=== PATIENT | female | born 1955 | race Caucasian/White ===

== ENCOUNTER 2018-11-12 07:46 | Inpatient (IN) | payer BC ==
[2018-11-06 14:42] VITALS: BMI 32.9
[~2018-11-12 07:46] MED LIST: LACTATED RINGERS 1,000 ML IV SCH
[2018-11-12] MEDS ORDERED: LIDOCAINE 1% INJ 10MG/ML (20 ML MDV) ONE (08:29)
[2018-11-12] MEDS ORDERED: GLYCOPYRROLATE 0.2 MG/ML 2 ML VIAL ONE (08:29)
[2018-11-12] MEDS ORDERED: PROPOFOL 10 MG/ML 20 ML VIAL IV ONE (08:29)
--- NOTE | 2018-11-12 08:45 | P.GSHP ---
History of Present Illness H&P Date: 11/12/18 CHIEF COMPLAINT: GERD and colon screen HISTORY OF PRESENT ILLNESS: The patient is a 62-year-old female who presents with gastroesophageal reflux disease and need for colon screen. Upper and lower endoscopy were offered for further evaluation and management. PAST MEDICAL HISTORY: Please see list. PAST SURGICAL HISTORY: Please see list. MEDICATIONS: Please see list. ALLERGIES: Please see list. SOCIAL HISTORY: No illicit drug use FAMILY HISTORY: No reports of Crohn disease or ulcerative colitis. REVIEW OF ORGAN SYSTEMS: CONSTITUTIONAL: No reports of fevers or chills. GI: Denies any blood in stools or constipation. PHYSICAL EXAM: VITAL SIGNS: Stable GENERAL: Well-developed pleasant in no acute distress. HEENT: No scleral icterus. Extraocular movements grossly intact. Moist buccal mucosa. NECK: Supple without lymphadenopathy. CHEST: Unlabored respirations. Equal bilateral excursions. CARDIOVASCULAR: Regular rate and rhythm. Distal 2+ pulses. ABDOMEN: Soft, nondistended. MUSCULOSKELETAL: No clubbing, cyanosis, or edema. ASSESSMENT: 1. Gastroesophageal reflux disease 2. Colon screen. PLAN: 1. Recommend proceeding with an upper and lower endoscopy Past Medical History Past Medical History: Cancer, Hypertension Additional Past Medical History / Comment(s): anemic, skin cancer basal cell, maurice ahumada History of Any Multi-Drug Resistant Organisms: None Reported Past Surgical History: Hysterectomy, Tonsillectomy Additional Past Surgical History / Comment(s): basal cell skin cancer removed Past Anesthesia/Blood Transfusion Reactions: Previous Problems w/ Anesthesia Additional Past Anesthesia/Blood Transfusion Reaction / Comment(s): takes longer to come out of anesthesia Past Psychological History: No Psychological Hx Reported Smoking Status: Never smoker Past Alcohol Use History: Occasional Past Drug Use History: None Reported - Past Family History Mother Family Medical History: Deep Vein Thrombosis (DVT), Pulmonary Embolus Medications and Allergies Home Medications Medication Instructions Recorded Confirmed Type Ferrous Sulfate [Feosol] 325 mg PO DAILY 11/06/18 11/12/18 History Multivitamins, Thera [Multivitamin 1 tab PO DAILY 11/06/18 11/12/18 History (formulary)] Olmesartan Medoxomil [Benicar] 40 mg PO HS 11/06/18 11/12/18 History Allergies Allergy/AdvReac Type Severity Reaction Status Date / Time Penicillins Allergy Anaphylaxis Verified 11/12/18 08:07 Surgical - Exam Vital Signs Temp Pulse Resp BP Pulse Ox 97.8 F 89 17 143/69 96 11/12/18 08:08 11/12/18 08:08 11/12/18 08:08 11/12/18 08:08 11/12/18 08:08
--- NOTE | 2018-11-12 08:47 | P.PCN ---
Date of Procedure: 11/12/18 Condition: other Description of Procedure: PREOPERATIVE DIAGNOSIS: Gastroesophageal reflux disease. POSTOPERATIVE DIAGNOSIS: Duodenitis Gastric ulcers Gastritis Gastroesophageal reflux disease Diaphragmatic hiatal hernia OPERATION: Esophagogastroduodenoscopy with biopsies along antrum. SURGEON: Umm Ralph MD ANESTHESIA: MAC. INDICATIONS: The patient is a 62-year-old female who presents with a history of reflux disease. Benefits and risks of the procedure were described. Informed consent was obtained. DESCRIPTION: The patient was brought into the endoscopy suite and laid in the left lateral decubitus position. An Olympus gastroscope was passed along the posterior oropharynx down to the distal esophagus where the squamocolumnar junction was encountered at 30 cm from the incisors. The stomach was entered and no bile reflux was found. Additional findings are listed below. Biopsies with cold forceps were obtained of the antrum. The first through third portion of the duodenum was examined and remarkable for duodenitis. Retroflexion of the scope confirmed Hill grade 4 lower esophageal valve. The squamocolumnar junction demonstrated LA grade B erosive esophagitis. The stomach was desufflated. The patient tolerated the procedure well. FINDINGS: Squamocolumnar junction 30 cm from the incisors. Diaphragmatic hiatus at 38 cm. Hiatal hernia, 8 cm, sliding type, paraesophageal type III Hill grade 4 lower esophageal valve. LA grade B erosive esophagitis. Active duodenitis. Chronic gastritis RECOMMENDATIONS: Upper endoscopy as needed Recommend repair paraesophageal hiatal hernia
--- NOTE | 2018-11-12 09:16 | P.PCN ---
Date of Procedure: 11/12/18 Description of Procedure: PREOPERATIVE DIAGNOSIS: History of polyps History of complicated diverticulitis History of anemia POSTOPERATIVE DIAGNOSIS: History of polyps History of complicated diverticulitis History of anemia Large bowel obstruction Colonic neoplasm sigmoid colon OPERATION: Colonoscopy converted to flexible sigmoidoscopy to the sigmoid colon Flexible sigmoidoscopy with Cathryn ink tatto at 20 cm from the anal verge. Flexible sigmoidoscopy with cold biopsy forceps of obstructing sigmoid lesion SURGEON: Umm Ralph MD. ANESTHESIA: MAC. INDICATIONS: The patient is a 62-year-old female who presents with complicated diverticulitis with history of fistula. She also presents with history of anemia. Benefits and risks were described and informed consent was obtained. DESCRIPTION OF PROCEDURE: The patient had undergone bowel prep. She had been brought into the endoscopy room and laid in the left lateral decubitus position. After adequate intravenous sedation, the rectum was examined with 2% lidocaine jelly. No external hemorrhoids were encountered. The rectal tone was within normal limits. No lesions were palpated in the rectal vault. An Olympus colonoscope was advanced along the rectum to a near obstructing lesion at the sigmoid colon at 20 cm from the anal verge. An adult Olympus colonoscope was exchanged for a pediatric colonoscope. The lesion was circumferential, polypoid and without bleeding. Including, severe diverticulosis with narrowing was confirmed. Despite maneuvers, the pediatric colonoscope could not advance beyond the lesion. A cold forceps biopsy was performed to obtain specimen. Additionally, Cathryn ink tattoo 4-mL was placed just inferior and along the borders of the neoplasm to plan for resection. Internal hemorrhoids, grade 2 was found. The colonoscope was removed. Withdrawal time was over 6 minutes. FINDINGS: [place]ronchik preparation quality scale 2 (1-5) No external prolapsed hemorrhoids. Scope advanced to the sigmoid colon. Circumferential sigmoid neoplasm with near complete obstruction and at 20 cm from the anal verge. RECOMMENDATIONS: Recommend immediate CT of the abdomen and pelvis Will need immediate colectomy with possible colostomy Plan - Discharge Summary Discharge Rx Participant: No New Discharge Prescriptions: No Action Ferrous Sulfate [Feosol] 325 mg PO DAILY Multivitamins, Thera [Multivitamin (formulary)] 1 tab PO DAILY Olmesartan Medoxomil [Benicar] 40 mg PO HS Discharge Medication List Ferrous Sulfate [Feosol] 325 mg PO DAILY 11/06/18 [History] Multivitamins, Thera [Multivitamin (formulary)] 1 tab PO DAILY 11/06/18 [History] Olmesartan Medoxomil [Benicar] 40 mg PO HS 11/06/18 [History]
[2018-11-12] MEDS: IOPAMIDOL-300 CONTRAST 30 ML VIAL (ORAL USE) PO PRN ×2 (10:58→11:58)
--- NOTE | 2018-11-12 13:16 | CT ---
EXAMINATION TYPE: CT abdomen pelvis w con DATE OF EXAM: 11/12/2018 HISTORY: Abnormal colonoscopy, Diverticulitis CT DLP: 1403.3mGycm Automated Exposure Control for Dose Reduction was Utilized. CONTRAST: CT scan of the abdomen and pelvis is performed with IV Contrast, patient injected with 100 mL of Isov ue 300. COMPARISON: None. FINDINGS: LUNG BASES: No significant abnormality is appreciated. LIVER/GB: Hepatic parenchyma is diffusely hypoattenuated in comparison to that of the spleen, most co mmonly seen in hepatic steatosis. This finding limits evaluation for hepatic masses. No gross evidenc e of hepatic mass is seen. Wedge-shaped area of hypoattenuation more focally along the fissure for th e falciform ligament most commonly relates to focal fatty infiltration. No intrahepatic biliary ducta l dilatation. PANCREAS: No ductal dilatation. SPLEEN: No splenomegaly. ADRENALS: No nodularity or thickening. KIDNEYS: Kidneys enhance and excrete symmetrically without hydronephrosis. Punctate to small to accur ately characterize bilateral renal lesions measure only 2 mm and are too small to accurately characte rize. Extrarenal pelvises sees are seen bilaterally. BOWEL: There is a partial intrathoracic stomach with retained oral contrast resulting in surrounding atelectasis. There is also herniation of mesenteric fat and lymph nodes through the diaphragmatic hia tus. Nodular prominence along the greater curvature of the stomach on image 7 could relate to folding of the stomach upon itself. There are 2 nodular densities near the ampulla of Vater in the duodenum on series 201 image 33 and 34 as well as on 35 measuring 8 mm and 7 mm. These could represent small polyps, prominent duodenal fol ds, or periampullary mass although there is no ductal dilatation at this time of the main pancreatic duct. There is distention without nestor dilation of the proximal large colon involving the cecum, ascending colon, and transverse colon with transition point in the proximal descending colon on image 32. The remainder the colon distally is decompressed. There is tethering of loops of redundant sigmoid colon on image 70 into the mesentery. There are multiple prominent but nonenlarged lymph nodes just cranial to this on image 66 that are clustered. There is diffuse thickening of the sigmoid colon with surrou nding pericolonic fat stranding in a long segment measuring approximately 9.5 cm in length marked on image 73. Rectum is decompressed. No dilated small bowel is seen. There are multiple prominent right lower quadrant clustered lymph nodes measuring up to 7 mm. Other scattered nonenlarged mesenteric lym ph nodes are present. UTERUS/ADNEXA: Atrophic appearance of the uterus and ovaries. LYMPH NODES: No greater than 1cm abdominal or pelvic lymph nodes are appreciated. OSSEOUS STRUCTURES: Degenerative changes of the lumbosacral junction and to lesser degree throughout the remainder of the lumbar spine. Nonspecific sclerotic lesion of the right iliac bone measures 4 mm on image 73. Osseous structures are grossly intact. OTHER: Mild atherosclerosis of the abdominal aorta and its branches. IMPRESSION: 1. Diffuse sigmoid colonic wall thickening in a long segment measuring approximately 9.5 cm with surr ounding pericolonic fat stranding could represent the patient's known colonic mass. 2. There is tethering of the redundant sigmoid colon with colocolonic nondistended fistula remaining possibility. 3. Distended proximal colon with transition point in the proximal descending colon that could be on t he basis of colonic spasm. No abnormal dilation of the colon. 4. Multiple scattered nonenlarged mesenteric lymph nodes, none of which are greater than 1 cm. 5. Partial intrathoracic stomach with folding upon the stomach creating nodular appearance. 6. Hepatic steatosis, limiting evaluation for hepatic masses. 7. Nodular prominence multifocally near the ampulla of Vater and may relate to duodenal folds, polyps , or periampullary mass.
[2018-11-12] MEDS ORDERED: ACETAMINOPHEN TAB 325 MG TAB PO PRN (14:11)
[2018-11-12] MEDS ORDERED: NALOXONE 0.4 MG/ML 1 ML VIAL IV PRN (14:11)
[2018-11-12] MEDS ORDERED: TEMAZEPAM 15 MG CAP PO PRN (14:11)
[2018-11-12] MEDS ORDERED: MELATONIN 3 MG TABLET PO PRN (14:11)
[2018-11-12] MEDS: SODIUM CHLORIDE 0.9% 1,000 ML IV SCH (14:26)
[2018-11-12 15:42] LABS: Basophils % (A) 0 %; Eosinophils # (A) 0.1 k/uL (0-0.7); Eosinophils % (A) 0 %; HCT 36.9 % (34.0-46.0); HGB 12.6 gm/dL (11.4-16.0); Lymphocytes # (A) 1.5 k/uL (1.0-4.8); Lymphocytes % (A) 10 %; MCH 27.6 pg (25.0-35.0); MCHC 34.2 g/dL (31.0-37.0); MCV 80.8 fL (80.0-100.0); Mean Platelet Volume 6.7; Monocytes # (A) 0.7 k/uL (0-1.0); Monocytes % (A) 5 %; Neutrophils # (A) 12.9 k/uL (1.3-7.7); Neutrophils % (A) 84 %; Platelet Count 365 k/uL (150-450); RBC 4.56 m/uL (3.80-5.40); WBC 15.4 k/uL (3.8-10.6)
[2018-11-12 15:44] LABS: Prothrombin Time 10.6 sec (9.0-12.0)
[2018-11-12 15:56] LABS: ALT 21 U/L (9-52); AST 19 U/L (14-36); African American GFR (CKD) >90 (>60 ml/min/1.73 sqM); Albumin 4.4 g/dL (3.5-5.0); Alkaline Phosphatase 65 U/L (38-126); Anion Gap 10 mmol/L; Blood Urea Nitrogen 11 mg/dL (7-17); Calcium 9.6 mg/dL (8.4-10.2); Carbon Dioxide 30 mmol/L (22-30); Chloride 99 mmol/L (98-107); Glucose 88 mg/dL (74-99); Sodium 139 mmol/L (137-145); Total Bilirubin 0.6 mg/dL (0.2-1.3); Total Protein 7.4 g/dL (6.3-8.2)
[2018-11-12] MEDS ORDERED: SODIUM CHLORIDE 0.9% 2,000 ML IV ONE (21:04)
[2018-11-12] MEDS ORDERED: LOSARTAN 50 MG TAB PO SCH (21:15)
--- NOTE | 2018-11-12 21:15 | P.PN ---
Subjective Progress Note Date: 11/12/18 CHIEF COMPLAINT: Large bowel obstruction HISTORY OF PRESENT ILLNESS: The patient is a 62-year-old female who during colonoscopy has an obstructive lesion along the sigmoid colon. Neoplasm cannot be excluded. She has personal history of previous ruptured diverticulitis over 8-9 months ago. She denies any current abdominal pain other than cramping. No reports of recent fevers or chills. She has been passing flatus since her colonoscopy. She does have personal history of anemia. Upper endoscopy was also consistent with large hiatal hernia with bleeding ulcers. She reports no passage of stool in her urine. ROS: No reports of nausea and vomiting. No fevers or chills. No new chest pain. No productive sputum PHYSICAL EXAM: VITAL SIGNS: Reviewed CONSTITUTIONAL: Well developed and in no acute distress. EYES: Conjuctivae without sclera icterus. Extraocular movements grossly intact. HEAD, EARS, NOSE, THROAT: Moist buccal mucosa. Head is atraumatic, normocephalic. Hears conversational speech. No nasal drainage. NECK: Supple. No thyroidomegaly. RESPIRATORY: Non-labored respirations and equal bilateral excursions. CARDIOVASCULAR: Palpable 2+ radial pulses. ABDOMEN: Soft. . Mildly distended. Non-tender. MUSCULOSKELETAL: No gross deformity of the lower extremities noted. No clubbing. No cyanosis. SKIN: Good skin turgor. Well perfused. NEUROLOGIC: Cranial nerves I through XII grossly intact. No focal or lateralizing signs. PSYCH: Appropriate affect. Alert and oriented to person, place and time. CLINCAL LABS: Pending RADIOLOGY: CT of the abdomen and pelvis independently reviewed alongside with patient demonstrating long segment of sigmoid thickening. No free air. Moderately dilated colon. No metastatic lesions of the liver. REPORT: Over 7 cm thickening of the sigmoid colon possible colovesical fistula cannot be excluded. ASSESSMENT: 1. Sigmoid colon mass, neoplasm 2. Large bowel obstruction from obstructive sigmoid colon mass 3. Large paraesophageal hiatal hernia with bleeding 4. Hypertensive heart disease PLAN: 1. Full inpatient admission for large bowel obstruction requiring urgent sigmoid colon resection and possible colostomy creation 2. Recommend echo including EKG hypertensive heart disease 3. Recommend CBC, comp metabolic panel, coags, type and screen and iron panel for preop 4. Robotic-assisted approach described as she reports no previous abdominal surgeries 5. Cardiology consultation for cardiac risk assessment Objective - Vital Signs Vital signs: Vital Signs Temp 97.8 F 11/12/18 08:08 Pulse 80 11/12/18 11:11 Resp 18 11/12/18 11:11 BP 152/80 11/12/18 11:11 Pulse Ox 96 11/12/18 10:12 Intake & Output 11/11/18 11/12/18 11/12/18 18:59 06:59 18:59 Intake Total 700 Balance 700 Intake: IV 700 - Labs CBC & Chem 7: 11/12/18 14:50 11/12/18 14:50 Assessment and Plan (1) Diverticulitis large intestine w/o perforation or abscess w/o bleeding Current Visit: Yes Status: Acute Code(s): K57.32 - DVTRCLI OF LG INT W/O PERFORATION OR ABSCESS W/O BLEEDING SNOMED Code(s): 5385973 (2) Neoplasm of sigmoid colon Current Visit: Yes Status: Acute Code(s): D49.0 - NEOPLASM OF UNSPECIFIED BEHAVIOR OF DIGESTIVE SYSTEM SNOMED Code(s): 763595101 (3) Hypertensive heart disease Current Visit: Yes Status: Acute Code(s): I11.9 - HYPERTENSIVE HEART DISEASE WITHOUT HEART FAILURE SNOMED Code(s): 32921941 (4) Anemia, iron deficiency Current Visit: Yes Status: Acute Code(s): D50.9 - IRON DEFICIENCY ANEMIA, UNSPECIFIED SNOMED Code(s): 69968758 (5) Paraesophageal hernia with obstruction but no gangrene Current Visit: Yes Status: Acute Code(s): K44.0 - DIAPHRAGMATIC HERNIA WITH OBSTRUCTION, WITHOUT GANGRENE SNOMED Code(s): 143272313 (6) Obesity (BMI 30.0-34.9) Current Visit: Yes Status: Acute Code(s): E66.9 - OBESITY, UNSPECIFIED SNOMED Code(s): 662418976578996 (7) Large bowel obstruction Current Visit: Yes Status: Acute Code(s): K56.609 - UNSP INTESTNL OBST, UNSP TO PARTIAL VERSUS COMPLETE OBST SNOMED Code(s): 142172397 (8) Colon polyp Current Visit: Yes Status: Acute Code(s): K63.5 - POLYP OF COLON SNOMED Code(s): 49799944
[2018-11-12] MEDS: LEVOFLOXACIN 500MG-D5W PMX 500 MG in DEXTROSE/WATER 1 100ML.BAG IVPB SCH (21:42)
[2018-11-12 23:39] LABS: Iron Saturation 4.59 (12.00-45.00)
[2018-11-12] MEDS: metroNIDAZOLE-NS PMX 500 MG in SALINE 1 100ML.BAG IVPB SCH (23:49)
[2018-11-13] MEDS ORDERED: POLYETHYLENE GLYCOL LYTES SOLN 4,000 ML SOLN.RECON PO ONE (01:00)
[2018-11-13] MEDS: metroNIDAZOLE-NS PMX 500 MG in SALINE 1 100ML.BAG IVPB SCH ×3 (05:08→18:26)
[2018-11-13] MEDS: SODIUM CHLORIDE 0.9% 1,000 ML IV SCH (05:09)
[2018-11-13 07:16] LABS: Basophils # (A) 0.1 k/uL (0-0.2); Basophils % (A) 1 %; Eosinophils # (A) 0.1 k/uL (0-0.7); Eosinophils % (A) 1 %; HCT 33.6 % (34.0-46.0); HGB 10.9 gm/dL (11.4-16.0); Lymphocytes # (A) 1.6 k/uL (1.0-4.8); Lymphocytes % (A) 23 %; MCH 26.8 pg (25.0-35.0); MCHC 32.4 g/dL (31.0-37.0); MCV 82.6 fL (80.0-100.0); Mean Platelet Volume 7.2; Monocytes # (A) 0.4 k/uL (0-1.0); Monocytes % (A) 5 %; Neutrophils # (A) 4.7 k/uL (1.3-7.7); Neutrophils % (A) 68 %; Platelet Count 349 k/uL (150-450); RBC 4.06 m/uL (3.80-5.40); RDW 15.6 % (11.5-15.5); WBC 6.9 k/uL (3.8-10.6)
[2018-11-13] MEDS: SODIUM FERRIC GLUCONAT-SUCROSE 125 MG in SODIUM CHLORIDE 0.9% 100 ML IVPB SCH (10:18)
--- NOTE | 2018-11-13 10:33 | ECHOF ---
Referral Reason:hypertension MEASUREMENTS -------- HEIGHT: 157.5 cm WEIGHT: 81.6 kg BP: 116/4 RVIDd: 3.0 cm (< 3.3) IVSd: 1.3 cm (0.6 - 1.1) LVIDd: 4.4 cm (3.9 - 5.3) LVPWd: 1.2 cm (0.6 - 1.1) IVSs: 1.6 cm LVIDs: 2.8 cm LVPWs: 1.7 cm LA Diam: 2.8 cm (2.7 - 3.8) LAESV Index (A-L): 19.21 ml/m Ao Diam: 3.0 cm (2.0 - 3.7) AV Cusp: 1.3 cm (1.5 - 2.6) MV EXCURSION: 18.872 mm (> 18.000) MV EF SLOPE: 83 mm/s (70 - 150) EPSS: 0.6 cm MV E Jordon: 1.20 m/s MV DecT: 179 ms MV A Jordon: 0.99 m/s MV E/A Ratio: 1.21 RAP: 5.00 mmHg RVSP: 24.48 mmHg FINDINGS -------- Sinus rhythm. The left ventricular size is normal. There is mild concentric left ventricular hypertrophy. Overa ll left ventricular systolic function is normal with, an EF between 60 - 65 %. The right ventricle is normal in size. Normal LA size by volume 22+/-6 ml/m2. The right atrium is normal in size. Interatrial and interventricular septum intact. The aortic valve is trileaflet and appears structurally normal. Mild mitral annular calcification present. There is trace mitral regurgitation. Mild tricuspid regurgitation present. Right ventricular systolic pressure is normal at < 35 mmHg. Trace/mild (physiologic) pulmonic regurgitation. The aortic root size is normal. Normal inferior vena cava with normal inspiratory collapse consistent with estimated right atrial pre ssure of 5 mmHg. There is no pericardial effusion. CONCLUSIONS -------- 1. Sinus rhythm. 2. The left ventricular size is normal. 3. There is mild concentric left ventricular hypertrophy. 4. Overall left ventricular systolic function is normal with, an EF between 60 - 65 %. 5. The right ventricle is normal in size. 6. Normal LA size by volume 22+/-6 ml/m2. 7. The right atrium is normal in size. 8. Interatrial and interventricular septum intact. 9. The aortic valve is trileaflet and appears structurally normal. 10. Mild mitral annular calcification present. 11. There is trace mitral regurgitation. 12. Mild tricuspid regurgitation present. 13. Right ventricular systolic pressure is normal at < 35 mmHg. 14. Trace/mild (physiologic) pulmonic regurgitation. 15. The aortic root size is normal. 16. Normal inferior vena cava with normal inspiratory collapse consistent with estimated right atrial pressure of 5 mmHg. 17. There is no pericardial effusion. SHANK RANDER: Theresa Molina RDCS
--- NOTE | 2018-11-13 13:37 | P.CRDCN ---
History of Present Illness History of present illness: This is a pleasant 62-year-old female past medical history significant for hypertension. She initially came in yesterday for an elective EGD/colonoscopy with Dr. Ralph. Colonoscopy findings were concerning for sigmoid neoplasm with near complete obstruction. CT scan was performed revealing diffuse sigmoid colonic wall thickening and a long segment measuring approximately 9.5 cm with surrounding pericolonic fat stranding secondary to colonic mass. There is tethering of the redundant sigmoid colon with colonic nondistended fistula possible, distended proximal colon with transition point in the proximal descending colon that could be on the basis of colonic spasm, multi ple scattered nonenlarged mesenteric lymph nodes. She is scheduled for an urgent sigmoid colon resection and possible colostomy creation. We have been asked to see her secondary to preoperative evaluation. She is seen and examined resting comfortably in bed in no acute distress. She is lying completely flat. She denies having any symptoms of chest discomfort, shortness of breath, dizziness or palpitations. She denies prior history of coronary artery disease and does not follow with a slip mixer for any reason. She states she underwent stress testing many years ago that was unremarkable. She has never had a heart catheterization before. Echocardiogram obtained reveals preserved LV systolic function with ejection fraction 60-65%. Current daily cardiac medications include olmesartan 40 mg daily. Laboratory data reviewed, WBC yesterday 15.4 repeat today 6.9, hemoglobin 10.9, platelets 349, sodium 139, potassium 4.0, creatinine 0.81, magnesium 2.0. At the time of my exam: CONSTITUTIONAL: Denies fever. Denies chills. EYES: Denies blurred vision. Denies vision changes. Denies eye pain. EARS, NOSE, MOUTH & THROAT: Denies headache. Denies sore throat. Denies ear pain. CARDIOVASCULAR: Denies chest pain. Denies shortness of breath. Denies orthopnea. Denies PND. Denies palpitations. RESPIRATORY: Denies cough. GASTROINTESTINAL: Denies abdominal pain. Denies diarrhea. Denies constipation. Denies nausea. Denies vomiting. MUSCULOSKELETAL: Denies myalgias. INTEGUMENTARY: Denies pruitis. Denies rash. NEUROLOGIC: Denies numbness. Denies tingling. Denies weakness. PSYCHIATRIC: Denies anxiety. Denies depression. ENDOCRINE: Denies fatigue. Denies weight change. Denies polydipsia. Denies polyurina. GENITOURINARY: Denies burning, hematuria or urgency with micturation. HEMATOLOGIC: Denies history of anemia. Denies bleeding. Blood pressure 127/75 heart rate 71 afebrile maintaining oxygen saturation on room air GENERAL: This is a 62-year-old female in no apparent distress at the time of my examination. HEENT: Head is atraumatic, normocephalic. Pupils are equal, round. Sclerae anicteric. Conjunctivae are clear. Mucous membranes of the mouth are moist. Neck is supple. There is no jugular venous distention. No carotid bruit is heard. LUNGS: Clear to auscultation no wheezes, rales or rhonchi. No chest wall tenderness is noted on palpation or with deep breathing. HEART: Regular rate and rhythm without murmurs, rubs or gallops. S1 and S2 heard. ABDOMEN: Soft, nontender. Bowel sounds are heard. No organomegaly noted. EXTREMITIES: No evidence of peripheral edema and no calf tenderness noted. VASCULAR: Radial and dorsalis pedis pulses palpated, no evidence of clubbing. NEUROLOGIC: Patient is awake, alert and oriented x3. ASSESSMENT Sigmoid colon mass Hypertension History of diverticulitis PLAN Clinically she is euvolemic and free of symptoms of angina. Obtain baseline EKG. There are no absolute contraindications to undergoing surgery. Cautious fluid administration and optimal blood pressure control recommended. Thank you kindly for this consultation. Nurse Practitioner note has been reviewed, I agree with a documented findings and plan of care. Patient was seen and examined. Past Medical History Past Medical History: Cancer, Hypertension Additional Past Medical History / Comment(s): anemic, skin cancer basal cell, maurice ahumada History of Any Multi-Drug Resistant Organisms: None Reported Past Surgical History: Hysterectomy, Tonsillectomy Additional Past Surgical History / Comment(s): basal cell skin cancer removed Past Anesthesia/Blood Transfusion Reactions: Previous Problems w/ Anesthesia Additional Past Anesthesia/Blood Transfusion Reaction / Comment(s): takes longer to come out of anesthesia Past Psychological History: No Psychological Hx Reported Smoking Status: Never smoker Past Alcohol Use History: Occasional Past Drug Use History: None Reported - Past Family History Mother Family Medical History: Deep Vein Thrombosis (DVT), Pulmonary Embolus Medications and Allergies Home Medications Medication Instructions Recorded Confirmed Type Ferrous Sulfate [Feosol] 325 mg PO DAILY 11/06/18 11/12/18 History Multivitamins, Thera [Multivitamin 1 tab PO DAILY 11/06/18 11/12/18 History (formulary)] Olmesartan Medoxomil [Benicar] 40 mg PO HS 11/06/18 11/12/18 History Allergies Allergy/AdvReac Type Severity Reaction Status Date / Time Penicillins Allergy Anaphylaxis Verified 11/12/18 14:57 Physical Exam Vitals: Vital Signs Temp Pulse Resp BP Pulse Ox 11/13/18 08:25 71 18 11/13/18 06:58 99.1 F 71 18 127/75 94 L 11/13/18 00:28 98.3 F 82 14 116/74 97 11/12/18 19:46 99.4 F 83 16 160/93 95 11/12/18 15:30 18 11/12/18 15:00 99.0 F 97 17 155/85 97 11/12/18 14:59 76 18 148/76 96 Intake and Output 11/12/18 11/13/18 11/13/18 22:59 06:59 14:59 Intake Total 225 750 960 Balance 225 750 960 Intake: Intake, IV Titration 225 750 Amount Levofloxacin 500Mg-D5w 100 Pmx 500 mg In Dextrose/ Water 1 100ml.bag @ 100 mls/hr IVPB 2100 [facility] Rx#: [id number] Sodium Chloride 0.9% 1, 225 450 000 ml @ 75 mls/hr IV . [id number] [facility] Rx#:[id number] metroNIDAZOLE-NS PMX 500 200 mg In Saline 1 100ml.bag @ 100 mls/hr IVPB Q6HR [facility] Rx#:[id number] Oral 960 Other: Voiding Method Toilet Toilet Results 11/13/18 06:47 11/12/18 14:50 Cardiac Enzymes 11/12/18 Range/Units 14:50 AST 19 (14-36) U/L Coagulation 11/12/18 Range/Units 14:50 PT 10.6 (9.0-12.0) sec CBC 11/12/18 11/13/18 Range/Units 14:50 06:47 WBC 15.4 H 6.9 (3.8-10.6) k/uL RBC 4.56 4.06 (3.80-5.40) m/uL Hgb 12.6 10.9 L (11.4-16.0) gm/dL Hct 36.9 33.6 L (34.0-46.0) % Plt Count 365 349 (150-450) k/uL Comprehensive Metabolic Panel 11/12/18 Range/Units 14:50 Sodium 139 (137-145) mmol/L Potassium 4.0 (3.5-5.1) mmol/L Chloride 99 (98-107) mmol/L Carbon Dioxide 30 (22-30) mmol/L BUN 11 (7-17) mg/dL Creatinine 0.81 (0.52-1.04) mg/dL Glucose 88 (74-99) mg/dL Calcium 9.6 (8.4-10.2) mg/dL AST 19 (14-36) U/L ALT 21 (9-52) U/L Alkaline Phosphatase 65 (38-126) U/L Total Protein 7.4 (6.3-8.2) g/dL Albumin 4.4 (3.5-5.0) g/dL Current Medications Generic Name Dose Route Start Last Admin Trade Name Freq PRN Reason Stop Dose Admin Acetaminophen 650 mg 11/12/18 14:11 Tylenol Tab PO Q6HR PRN Mild Pain or Fever > 100.5 Acetaminophen 1,000 mg 11/14/18 11:00 Tylenol Tab PO 11/14/18 11:01 ONCE ONE Alvimopan 12 mg 11/14/18 10:00 Entereg PO 11/14/18 10:01 ONCE ONE Heparin Sodium (Porcine) 5,000 unit 11/14/18 11:00 Heparin SQ 11/14/18 11:01 ONCE ONE Sodium Chloride 1,000 mls @ 75 mls/hr 11/12/18 14:30 11/13/18 05:09 Saline 0.9% IV Not Given .[id number] [facility] Levofloxacin 500 mg/ IV 100 mls @ 100 mls/hr 11/12/18 21:15 11/12/18 21:42 Solution IVPB 100 mls/hr 2100 [facility] Administration Metronidazole 500 mg/ IV 100 mls @ 100 mls/hr 11/13/18 00:00 11/13/18 05:08 Solution IVPB 100 mls/hr Q6HR [facility] Administration Clindamycin Phosphate 900 mg/ 56 mls @ 112 mls/hr 11/14/18 11:00 Dextrose/Water IVPB 11/14/18 11:29 ONCE ONE Gentamicin Sulfate 320 mg/ 108 mls @ 108 mls/hr 11/14/18 10:00 Sodium Chloride IVPB 11/14/18 10:59 ONCE ONE Ferric Sodium Gluconate 125 mg 110 mls @ 100 mls/hr 11/13/18 09:00 11/13/18 10:18 / Sodium Chloride IVPB 100 mls/hr DAILY [facility] Administration Melatonin 3 mg 11/12/18 14:11 Melatonin PO HS PRN Insomnia Meloxicam 15 mg 11/14/18 11:00 Mobic PO 11/14/18 11:01 ONCE ONE Metronidazole 1,000 mg 11/13/18 13:00 Flagyl PO 11/13/18 23:01 TID@1300,1400,2300 [facility] Miscellaneous Information 1 each 11/14/18 00:18 Pharmacy To Dose Per Abx Ppx Guidelines MISCELLANE DIRECTED PRN Per Protocol Naloxone HCl 0.2 mg 11/12/18 14:11 Narcan IV Q2M PRN Opioid Reversal Neomycin Sulfate 1,000 mg 11/13/18 13:00 Neomycin PO 11/13/18 23:01 TID@1300,1400,2300 [facility] Patient's Own Med- 1 each 11/13/18 21:00 Benicar 40mg Tab PO HS [facility] Ondansetron HCl 4 mg 11/12/18 14:11 Zofran IVP Q8HR PRN Nausea And Vomiting Temazepam 15 mg 11/12/18 14:11 Restoril PO HS PRN Insomnia Intake and Output 11/12/18 11/13/18 11/13/18 22:59 06:59 14:59 Intake Total 225 750 960 Balance 225 750 960 Intake: Intake, IV Titration 225 750 Amount Levofloxacin 500Mg-D5w 100 Pmx 500 mg In Dextrose/ Water 1 100ml.bag @ 100 mls/hr IVPB 2100 [facility] Rx#: [id number] Sodium Chloride 0.9% 1, 225 450 000 ml @ 75 mls/hr IV . [id number] [facility] Rx#:[id number] metroNIDAZOLE-NS PMX 500 200 mg In Saline 1 100ml.bag @ 100 mls/hr IVPB Q6HR [facility] Rx#:[id number] Oral 960 Other: Voiding Method Toilet Toilet 11/13/18 06:47 11/12/18 14:50
[2018-11-13] MEDS: metroNIDAZOLE 500 MG TAB PO SCH ×3 (13:59→22:26)
[2018-11-13] MEDS: NEOMYCIN 500 MG TAB PO SCH ×3 (13:59→22:26)
--- NOTE | 2018-11-13 14:38 | P.PN ---
<Sheri Abdullahi A - Last Filed: 11/13/18 14:37> Subjective Progress Note Date: 11/13/18 CHIEF COMPLAINT: Large bowel obstruction HISTORY OF PRESENT ILLNESS: Patient seen and examined at the bedside. She denies abdominal pain. She is tolerating clear liquid diet. Denies nausea or vomiting. Patient has been ambulating in her room. WBC 6.9. Hemoglobin 10.9. Vital signs have been stable. PHYSICAL EXAM: VITAL SIGNS: Reviewed. GENERAL: Well-developed in no acute distress. HEENT: No sclera icterus. Extraocular movements grossly intact. Moist buccal mucosa. Head is atraumatic, normocephalic. Hears conversational speech. No nasal drainage. NECK: Supple without lymphadenopathy. CHEST: Non-labored respirations and equal bilateral excursions. CARDIOVASCULAR: Regular rate with regular rhythm. Palpable 2+ radial pulses. ABDOMEN: Soft. Nondistended. Nontender. Positive bowel sounds. MUSCULOSKELETAL: No clubbing, cyanosis or edema. NEUROLOGIC: No focal or lateralizing signs. Cranial nerves II through XII grossly intact. PSYCH: Appropriate affect. Alert and oriented to person, place and time. SKIN: Well perfused. Good skin turgor. ASSESSMENT: 1. Sigmoid colon mass, neoplasm 2. Large bowel obstruction from obstructive sigmoid colon mass 3. Large paraesophageal hiatal hernia with bleeding 4. Hypertensive heart disease 5. Iron deficiency anemia PLAN: 1. Cardiology consulted for surgical clearance. No contraindications to undergo surgery per cardiology consultation dictation. 2. Begin daily IV iron infusions 3. Patient to undergo bowel prep today 4. Clear liquid diet today. NPO at midnight. 5. Patient to undergo robotic sigmoid colectomy tomorrow with Dr. Ralph Nurse practitioner note has been reviewed by physician. Signing provider agrees with the documented findings, assessment, and plan of care. Objective - Vital Signs Vital signs: Vital Signs Temp 99.1 F 11/13/18 06:58 Pulse 71 11/13/18 08:25 Resp 18 11/13/18 08:25 BP 127/75 11/13/18 06:58 Pulse Ox 94 L 11/13/18 06:58 Intake & Output 11/12/18 11/13/18 11/13/18 18:59 06:59 18:59 Intake Total 123 756 2865 Balance 919 578 9677 Intake: IV 700 Intake, IV Titration 975 Amount Levofloxacin 500Mg-D5w 100 Pmx 500 mg In Dextrose/ Water 1 100ml.bag @ 100 mls/hr IVPB 2100 [facility] Rx#: [id number] Sodium Chloride 0.9% 1, 675 000 ml @ 75 mls/hr IV . [id number] [facility] Rx#:[id number] metroNIDAZOLE-NS PMX 500 200 mg In Saline 1 100ml.bag @ 100 mls/hr IVPB Q6HR [facility] Rx#:[id number] Oral 1680 Other: Voiding Method Toilet Toilet - Labs CBC & Chem 7: 11/13/18 06:47 11/12/18 14:50 Labs: Abnormal Lab Results - Last 24 Hours (Table) 11/12/18 11/12/18 11/13/18 Range/Units 14:50 14:50 06:47 WBC 15.4 H (3.8-10.6) k/uL Hgb 10.9 L (11.4-16.0) gm/dL Hct 33.6 L (34.0-46.0) % RDW 15.6 H (11.5-15.5) % Neutrophils # 12.9 H (1.3-7.7) k/uL Iron 22 L (50-170) ug/dL TIBC 479 H (228-460) ug/dL Iron Saturation 4.59 L (12.00-45.00) Assessment and Plan (1) Anemia, iron deficiency Current Visit: Yes Status: Acute Code(s): D50.9 - IRON DEFICIENCY ANEMIA, UNSPECIFIED SNOMED Code(s): 58990790 (2) Hypertensive heart disease Current Visit: Yes Status: Acute Code(s): I11.9 - HYPERTENSIVE HEART DISEASE WITHOUT HEART FAILURE SNOMED Code(s): 83324425 (3) Large bowel obstruction Current Visit: Yes Status: Acute Code(s): K56.609 - UNSP INTESTNL OBST, UNSP TO PARTIAL VERSUS COMPLETE OBST SNOMED Code(s): 623668007 (4) Neoplasm of sigmoid colon Current Visit: Yes Status: Acute Code(s): D49.0 - NEOPLASM OF UNSPECIFIED BEHAVIOR OF DIGESTIVE SYSTEM SNOMED Code(s): 090483111 <Umm Ralph N - Last Filed: 11/13/18 15:46> Subjective All benefits and risks of surgery described. 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 No stools within her urine. We'll proceed with sigmoid colectomy tomorrow possible colostomy creation via robotic-assisted approach. Possible open technique also reviewed. Objective - Vital Signs Vital signs: Vital Signs Temp 98.8 F 11/13/18 15:10 Pulse 77 11/13/18 15:10 Resp 19 11/13/18 15:10 BP 150/89 11/13/18 15:10 Pulse Ox 94 L 11/13/18 15:10 Intake & Output 11/12/18 11/13/18 11/13/18 18:59 06:59 18:59 Intake Total 205 435 6511 Balance 471 940 5399 Intake: IV 700 Intake, IV Titration 975 Amount Levofloxacin 500Mg-D5w 100 Pmx 500 mg In Dextrose/ Water 1 100ml.bag @ 100 mls/hr IVPB 2100 [facility] Rx#: [id number] Sodium Chloride 0.9% 1, 675 000 ml @ 75 mls/hr IV . [id number] [facility] Rx#:[id number] metroNIDAZOLE-NS PMX 500 200 mg In Saline 1 100ml.bag @ 100 mls/hr IVPB Q6HR [facility] Rx#:[id number] Oral 1680 Other: Voiding Method Toilet Toilet - Labs CBC & Chem 7: 11/13/18 06:47 11/12/18 14:50 Labs: Abnormal Lab Results - Last 24 Hours (Table) 11/12/18 11/13/18 Range/Units 14:50 06:47 Hgb 10.9 L (11.4-16.0) gm/dL Hct 33.6 L (34.0-46.0) % RDW 15.6 H (11.5-15.5) % Iron 22 L (50-170) ug/dL TIBC 479 H (228-460) ug/dL Iron Saturation 4.59 L (12.00-45.00) Assessment and Plan (1) Diverticulitis large intestine w/o perforation or abscess w/o bleeding Current Visit: Yes Status: Acute Code(s): K57.32 - DVTRCLI OF LG INT W/O PERFORATION OR ABSCESS W/O BLEEDING SNOMED Code(s): 3107062 (2) Neoplasm of sigmoid colon Current Visit: Yes Status: Acute Code(s): D49.0 - NEOPLASM OF UNSPECIFIED BEHAVIOR OF DIGESTIVE SYSTEM SNOMED Code(s): 194635674 (3) Hypertensive heart disease Current Visit: Yes Status: Acute Code(s): I11.9 - HYPERTENSIVE HEART DISEASE WITHOUT HEART FAILURE SNOMED Code(s): 08532328 (4) Anemia, iron deficiency Current Visit: Yes Status: Acute Code(s): D50.9 - IRON DEFICIENCY ANEMIA, UNSPECIFIED SNOMED Code(s): 54664375 (5) Paraesophageal hernia with obstruction but no gangrene Current Visit: Yes Status: Acute Code(s): K44.0 - DIAPHRAGMATIC HERNIA WITH OBSTRUCTION, WITHOUT GANGRENE SNOMED Code(s): 626633072 (6) Obesity (BMI 30.0-34.9) Current Visit: Yes Status: Acute Code(s): E66.9 - OBESITY, UNSPECIFIED SNOMED Code(s): 151156343580136 (7) Large bowel obstruction Current Visit: Yes Status: Acute Code(s): K56.609 - UNSP INTESTNL OBST, UNSP TO PARTIAL VERSUS COMPLETE OBST SNOMED Code(s): 999334859 (8) Colon polyp Current Visit: Yes Status: Acute Code(s): K63.5 - POLYP OF COLON SNOMED Code(s): 16117839
[2018-11-13] MEDS ORDERED: BENICAR 40 MG PO SCH (21:00)
[2018-11-13] MEDS: LEVOFLOXACIN 500MG-D5W PMX 500 MG in DEXTROSE/WATER 1 100ML.BAG IVPB SCH (22:25)
[2018-11-13] MEDS: BENICAR 40 MG PO SCH (22:26)
[2018-11-14] MEDS ORDERED: Antibiotics per Pharmacy 1 EACH MISC MISCELLANE PRN (00:18)
[2018-11-14] MEDS: metroNIDAZOLE-NS PMX 500 MG in SALINE 1 100ML.BAG IVPB SCH ×5 (00:23→19:36)
[2018-11-14] MEDS: ONDANSETRON 4 MG/2 ML VIAL IVP PRN ×2 (00:28→13:32)
[2018-11-14] MEDS: SODIUM CHLORIDE 0.9% 1,000 ML IV SCH ×4 (02:24→23:10)
[2018-11-14 07:12] LABS: Glucose,Whole Blood 102 mg/dL (75-99)
--- NOTE | 2018-11-14 07:45 | P.HPADDEND ---
H&P Addendum H&P Addendum Date: 11/14/18 Patient presented with large bowel obstruction secondary to sigmoid mass found upon colonoscopy. Patient has history of complicated diverticulitis including previous colovesical fistula. Cardiac risk assessment performed. We'll proceed with sigmoid colectomy possible colostomy creation. All questions addressed.
--- NOTE | 2018-11-14 09:00 | CONS ---
CONSULTATION DATE OF CONSULTATION: 11/13/2018 REASON FOR CONSULTATION: Medical management requested by Dr. Ralph. CONSULTATION: This is a 62-year-old patient whose family doctor is out of the area. The patient had undergone about 2 years ago EGD, colonoscopy by an outside physician. The patient was told at that time that she has what she describes as an abscess in the distal colon and she needed to have the surgery for the same. She did not like the presentation of the physician at that time and decided to postpone the matter. Two years forward now, she has seen Dr. Ralph now who did an EGD and colonoscopy. Patient is found to have a neoplasm in the distal sigmoid about 20 cm from the anal verge with a near obstructive lesion. The patient has been taking a laxative for quite a while. Denies any change of appetite or weight loss. Patient has had anemia for close to 2-1/2 years and also hypertension. Patient is rather active. Denies any cardiac symptoms. No chest pain, no palpitation. No shortness of breath. No cardiac history. REVIEW OF SYSTEMS: CONSTITUTIONAL: None. HEENT: None. RESPIRATORY: None. CARDIOVASCULAR: None. GASTROINTESTINAL: None. GENITOURINARY: None. DERMATOLOGICAL: None. HEMATOLOGICAL: None. LYMPHATIC: None. PSYCHIATRY: None. NEUROLOGICAL: None. PAST MEDICAL HISTORY: Of hypertension, anemia, arthritis in the fingers. PAST SURGICAL HISTORY: Hysterectomy, tonsillectomy, basal cell cancer removed. SOCIAL HISTORY: Does not smoke. Alcohol occasionally. . FAMILY HISTORY: DVT and pulmonary embolism. HOME MEDICATIONS: Benicar 40 mg q.h.s., multivitamin 1 tablet p.o. daily, iron 325 p.o. daily. ALLERGIES: PENICILLIN. PHYSICAL EXAMINATION: Temperature 98.5, pulse 72, respiration 16, blood pressure 120/71, pulse ox 98% on room air. GENERAL APPEARANCE: Well built, BMI 32.9, sitting, comfortable. EYES: Pupils equal, conjunctivae normal. HEENT: External appearance of nose and ear normal, oral cavity normal. NECK: JVD unable to assess. Mass not palpable. RESPIRATORY: Effort normal. LUNGS: Fair entry. CARDIOVASCULAR: First and second sounds normal, no edema. ABDOMEN: Soft, nontender. Liver and spleen not palpable. LYMPHATIC: No lymph nodes palpable in the neck and axilla. PSYCHIATRY: Alert and oriented x3. Mood and affect normal. NEUROLOGICAL: Pupils equal. Cranial nerves grossly intact, Power and sensation grossly intact. INVESTIGATIONS: Admission labs white count 6.9, hemoglobin 10.9, platelets 349, potassium 4.0, BUN 11, creatinine 0.81. A 2D echo, EF of 60%-65%. CT scan of the abdomen and pelvis, diffuse sigmoid colonic wall thickening in the long segment measuring 9.5 cm with surrounding pericolonic fat stranding, questionable fistula, hepatic steatosis. ASSESSMENT: 1. Diffuse sigmoid colon wall thickening of a long segment measuring 9.5 cm and near obstruction at 20 cm from the anal verge on colonoscopy. 2. Hepatic steatosis. 3. Obesity; body mass index of 32.9. 4. Essential hypertension. 5. Iron deficiency anemia, likely from the above tumor. 6. Primary osteoarthritis of the fingers. PLAN: 1. From a risk assessment standpoint, the patient has good exercise tolerance with no cardiac or pulmonary symptoms and therefore has a low risk for surgery. 2. Patient's home medications in the meantime are to be resumed. Lovenox for DVT prophylaxis. Preoperative antibiotics per Dr. Ralph. 3. Care was discussed with the patient. Questions were answered. Thank you, Dr. Ralph. MMODL / IJN: [id number] /
[2018-11-14] MEDS: SODIUM FERRIC GLUCONAT-SUCROSE 125 MG in SODIUM CHLORIDE 0.9% 100 ML IVPB SCH (09:01)
[2018-11-14] MEDS: PANTOPRAZOLE 40 MG/10 ML VIAL IVP SCH (09:01)
[2018-11-14 09:35] LABS: African American GFR (CKD) >90 (>60 ml/min/1.73 sqM); Anion Gap 6 mmol/L; Blood Urea Nitrogen 9 mg/dL (7-17); Carbon Dioxide 24 mmol/L (22-30); Chloride 109 mmol/L (98-107); Glucose 92 mg/dL (74-99); Potassium 4.2 mmol/L (3.5-5.1); Sodium 139 mmol/L (137-145)
[2018-11-14] MEDS ORDERED: GENTAMICIN 320 MG in SODIUM CHLORIDE 0.9% 100 ML IVPB ONE (10:00)
[2018-11-14] MEDS ORDERED: ALVIMOPAN 12 MG CAPSULE PO ONE (10:00)
[2018-11-14 10:06] LABS: Basophils % (A) 1 %; Eosinophils % (A) 1 %; HGB 10.9 gm/dL (11.4-16.0); Lymphocytes # (A) 1.1 k/uL (1.0-4.8); Lymphocytes % (A) 17 %; MCH 26.7 pg (25.0-35.0); MCHC 33.2 g/dL (31.0-37.0); MCV 80.6 fL (80.0-100.0); Mean Platelet Volume 8.7; Monocytes # (A) 0.5 k/uL (0-1.0); Monocytes % (A) 8 %; Neutrophils # (A) 4.7 k/uL (1.3-7.7); Neutrophils % (A) 72 %; Platelet Count 266 k/uL (150-450); RBC 4.09 m/uL (3.80-5.40); WBC 6.5 k/uL (3.8-10.6)
[2018-11-14] MEDS ORDERED: HEPARIN SODIUM,PORCINE 5,000 UNIT/ML 1 ML VIAL SQ ONE (11:00)
[2018-11-14] MEDS ORDERED: MELOXICAM 7.5 MG TAB PO ONE (11:00)
[2018-11-14] MEDS ORDERED: ACETAMINOPHEN TAB 500 MG TAB PO ONE (11:00)
[2018-11-14] MEDS ORDERED: CLINDAMYCIN 900 MG in DEXTROSE 5% IN WATER 50 ML IVPB ONE ×2 (11:00)
[2018-11-14] MEDS ORDERED: IV FLUID CONTINUATION 150 ML IV ONE (12:57)
[2018-11-14] MEDS ORDERED: DEXAMETHASONE SOD PHOS (MDV) 100 MG/10 ML VIAL IV ONE (13:32)
[2018-11-14] MEDS ORDERED: LIDOCAINE 1% 20 ML VIAL (10MG/ML) FOR IV START INTRADERMA ONE (13:32)
[2018-11-14] MEDS ORDERED: LACTATED RINGERS 1,000 ML IV ONE ×5 (13:33→19:33)
[2018-11-14] MEDS ORDERED: HYDROmorphone (PF) 1 MG/ML ONE (15:00)
[2018-11-14] MEDS ORDERED: PROPOFOL 10 MG/ML 20 ML VIAL IV ONE (15:00)
[2018-11-14] MEDS ORDERED: LIDOCAINE 1% INJ 10MG/ML (20 ML MDV) ONE (15:00)
[2018-11-14] MEDS ORDERED: ROCURONIUM BROMIDE 10 MG/ML 10 ML VIAL IV ONE (15:00)
[2018-11-14] MEDS ORDERED: MIDAZOLAM 2 MG/2 ML VIAL ONE (15:00)
[2018-11-14] MEDS ORDERED: GLYCOPYRROLATE 0.2 MG/ML 2 ML VIAL ONE (15:00)
[2018-11-14] MEDS ORDERED: ePHEDrine SULFATE/0.9% NACL/PF 50 MG/5 ML SYRINGE IV ONE (15:00)
[2018-11-14] MEDS ORDERED: fentaNYL (PF) 50 MCG/ML 2 ML AMP ONE (15:00)
[2018-11-14] MEDS ORDERED: NEOSTIGMINE 1 MG/ML 10 ML VIAL ONE (15:00)
[2018-11-14] MEDS ORDERED: IV FLUID CONTINUATION 1,000 ML IV ONE (15:00)
[2018-11-14] MEDS ORDERED: SUCCINYLCHOLINE CHLORIDE 100 MG/5 ML SYR IV ONE (15:00)
[2018-11-14] MEDS ORDERED: SODIUM CHLORIDE 0.9% 50 ML with CLINDAMYCIN 900 MG IV ONE ×2 (15:20)
[2018-11-14] MEDS ORDERED: BUPIVACAIN-EPI 0.25%-1:200,000 30 ML VIAL SQ ONE (15:40)
[2018-11-14] MEDS ORDERED: ROPIVACAINE 250 MG, HYDROMORPHONE (PF) 5 MG in SODIUM CHLORIDE 0.9% 200 ML EPIDURAL PRN (18:38)
[2018-11-14] MEDS ORDERED: NALOXONE 0.4 MG/ML 1 ML VIAL IV PRN (18:38)
[2018-11-14] MEDS: LEVOFLOXACIN 500MG-D5W PMX 500 MG in DEXTROSE/WATER 1 100ML.BAG IVPB SCH (20:41)
--- NOTE | 2018-11-14 22:03 | P.OP ---
Date of Procedure: 11/14/18 Description of Procedure: Date of Procedure: 11/14/18 SURGEON: PAYAL GAVIRIA MD PREOPERATIVE DIAGNOSES: 1. Sigmoid diverticulitis with large bowel obstruction 2. Chronic consitpation 3. Hypertensive heart disease 4. 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 Sigmoid diverticulitis with large bowel obstruction 2. 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 Large 25 x 20 cm phlegmon sigmoid colon from severe diverticulitis 5. Hypertensive heart disease OPERATION: 1. Robotic-assisted daVinci Xi lysis of adhesions over 1.5 hrs 2. Open resection sigmoid colectomy of small bowel to sigmoid colon and colon- colon fistula 3. Small bowel resection with primary anastomosis for small bowel to sigmoid colon fistula 4. Open lower anterior resection with Ethicon 29 mm powered ILS 5. Application of PREVENA incisional wound VAC system universal 6. Placement round MEÑO # 19 drain pelvis via right lower quadrant 7. Peritoneal lavage 3 liters normal saline 8. Intraoperative flexible sigmoidoscopy using colonoscope Anesthesia: alayna HANCOCK Estimated Blood Loss (ml): 200 Pathology: other (Large phlegmon 25 x 20 cm involving small bowel to sigmoid colon colon fistula and colon to colon fistula) Condition: stable Disposition: floor COMPLICATIONS: None. Operative Findings: 1. Initial robotic assisted approach demonstrated adhesions of sigmoid colon along the left lateral pelvis 2. Highly redundant sigmoid colon extending into pelvis with previous hysterectomy. 3. Sigmoid colon adhered to remnant left fallopian tube 4. Dense calcified phlegmon of the pelvis prohibiting further robotics assisted approach 5. Proximal ileum small bowel to mid sigmoid colon fistula from severe diverticulitis 6. No peritoneal studding or features of malignancy identified 7. Ethicon powered 29 mm ILS for low anterior anastomosis 8. Intraoperative flexible sigmoidoscopy demonstrated excellent donuts including no leak 9. Case is contaminated secondary to small bowel fistula to colon and small bowel enteric spillage 10. Digital images of the resected specimen and intraoperative findings including new anastomosis reviewed with patient's family INDICATIONS: The patient is a 62-year-old female who presents with history of complicated sigmoid diverticulitis and colovesical fistula in the past. She had a colonoscopy confirming a large bowel obstruction. Benefits and risks of surgical intervention was described in detail including infection, injury to the ureter, colostomy creation, possibility for additional surgery was discussed at length. Informed consent was obtained. All questions of the patient and family were answered. DESCRIPTION: Earlier the patient had undergone a bowel prep using the enhanced colon recovery program. The patient was transferred to the operating room and placed supine. After general induction, the abdomen was prepped and draped in standard sterile fashion. Ioban was placed along the abdomen to minimize any contamination of skin floor. A Swift catheter was placed. After a timeout protocol was performed, attention was then brought to the left upper quadrant whereby a 0 degree 5 mm laparoscopic trocar entry was performed. The abdominal cavity was entered and insufflated to 15 mmHg pressure, which she tolerated well. Diagnostic laparoscopy confirmed moderately redundant sigmoid colon adhesion along the left pelvis. The liver surface was unremarkable. The small bowel was unremarkable. Next a robotic 12-mm trocar was placed along the right lateral abdominal wall 20 cm superior from the pelvis. Two 8 mm ports were placed along the upper abdomen. Ports were placed 8 to 10 cm apart from each other including 15-20 cm away from the target anatomy of the left pelvis. The 5-mm port was exchanged for an 8 mm robotic port at the left upper quadrant. The robot was docked along the left lateral abdomen. The patient was positioned in steep Trendelenburg position. Using atraumatic graspers and vessel sealer, the robotic system was docked and primed as described. Instruments were interchanged by the construction management assistant including scissors, needle driver supervisor, robotic stapler and vessel sealer. The robot stapler was prepared along the right lateral abdominal wall. The stapler 12-mm port was arranged along the right lateral abdominal wall. Next, attention was brought to identify the sigmoid colon. Severe intra-abdominal adhesions involving the sigmoid colon was found with extensive lysis of adhesions over 1.5 hrs performed using vessel sealer and hook cautery. A stay suture using 3- 0 silk was placed along the anterior serosa of the redundant sigmoid colon. The sigmoid mesentery was mobilized using a vessel sealer whereby the descending colon was marked and tagged. Using fires of the robot stapler 60 mm green load, the proximal redundant sigmoid colon was divided. The mesentery of the sigmoid colon was mobilized towards the pelvic brim and sacral promontory using a vessel sealer. Next, a dense phlegmon involving the colon and small bowel was found and calcified. As a result of this finding, further laparoscopic approach was abandoned for open technique. The robot was undocked. I re-scrubbed into the case. A #10 blade was used to enter along the epigastrium and extended down to the pubis. Carefully the abdomen was entered using electro- Bovie cautery. A Bookwalter was placed for maximal exposure. The small bowel was positioned into the upper abdomen. Abnormal adhesions were found of the small bowel to sigmoid colon consistent with fistula and phlegmon. Adhesions from the abdominal wall were taken down using Enseal energy device. The small bowel fistula was resected from the rest of the small bowel using Emergent One 60-mm beckwith load. The sigmoid colon was dissected free from its surrounding tissue using Enseal and bovie cautery. The distal sigmoid colon tattoo was found and palpated. Distal to the tattoo, the sigmoid colon was resected using Contour stapler. Small bowel anastomosis was prepared along the previously resected bowel at the mid-jejunum. An anti-peristaltic anastomosis of mid-jejunum was prepared. A ralph- lumen was created after enterotomies were made along the antimesenteric border of the small bowel. The enterotomy was closed using 60 mm beckwith loads. The mesenteric defect was completely closed and oversewn using 3-0 silk. Next, attention was brought to the [id number] anastomosis. A 29-mm anvil was positioned after placing a suture along the anvil institutional nutrition consultant. The shaft of the anvil was exited via the staple line and the anvil institutional nutrition consultant was removed. I went to the foot of the bed to place the ILS stapler via the rectum. The anvil and powered 29-mm ILS stapler were mated. The doughnuts were intact on both sides and thick. A leak test was performed using colonoscope with saline placed in the pelvis. Endoscopic imaging was obtained. The leak test was negative. A round #19 drain was placed anterior to the anastomosis along the pelvis and exited via the right lateral abdominal wall. A 2-0 nylon stitch was placed. The abdomen was closed using double stranded 0 PDS. The skin incision was reapproximated using interrupted 3-0 Vicryl for the dermis at the umbilicus. An PREVENA incisional wound VAC system was placed after placing. Tegaderm. Sponge was placed over the midline incision. Tegaderm was placed over the sponge system. A 3 cm circular disk was cut above the umbilicus dressing. A suction device was placed. No leak within the system was found. The 8-mm trocar sites were reapproximated using 4-0 Monocryl in an interrupted subcuticular fashion. Local anesthetic was infiltrated to all wounds for postop analgesia. All incisions were also cleansed with diluted hydrogen peroxide. A suction bulb was placed along the tubing. Liquid glue was applied to the rest of the skin incisions. The patient had tolerated the procedure well. The patient was extubated successfully. Intraoperative photos were reviewed with the patient's family who were overall pleased with the level of care. The patient was transferred to the postanesthesia care unit in stable condition. COMPLEXITY: Moderate adhesions and phlegmon of the pelvis of small bowel fistula to colon requiring over 3+ hrs of dissection.
[2018-11-14] MEDS ORDERED: ONDANSETRON 4 MG/2 ML VIAL IVP PRN (22:07)
[2018-11-14] MEDS: diphenhydrAMINE 50 MG/ML 1 ML VIAL IVP PRN (22:16)
[2018-11-14] MEDS ORDERED: SODIUM CHLORIDE 0.9% 1,000 ML IV ONE (22:40)
[2018-11-14] MEDS ORDERED: DEXAMETHASONE SOD PHOSPHATE 10 MG/ML 1 ML VIAL IV ONE (22:58)
[2018-11-14] MEDS ORDERED: HYDROmorphone 0.5 MG/0.5 ML SYRINGE IVP PRN (22:58)
[2018-11-14] MEDS ORDERED: MIDAZOLAM 2 MG/2 ML VIAL IV PRN (22:58)
[2018-11-14] MEDS ORDERED: BENZOCAINE/MENTHOL LOZENG 1 EACH LOZENGE MUCOUS MEM PRN (22:58)
[2018-11-14] MEDS ORDERED: LIDOCAINE 1% 20 ML VIAL (10MG/ML) FOR IV START INTRADERMA PRN (22:58)
[2018-11-14] MEDS ORDERED: METOCLOPRAMIDE 5 MG/ML 2 ML VIAL IVP ONE (22:58)
[2018-11-14] MEDS ORDERED: ONDANSETRON 4 MG/2 ML VIAL IVP ONE (22:58)
[2018-11-14] MEDS ORDERED: KETOROLAC 30 MG/ML 1 ML VIAL IVP PRN (22:58)
[2018-11-14] MEDS: BENICAR 40 MG PO SCH (23:10)
[2018-11-14] MEDS ORDERED: SCOPOLAMINE 1.5MG/72HR PATCH TRANSDERM ONE (23:30)
[2018-11-15] MEDS: LACTATED RINGERS 1,000 ML IV SCH ×2 (00:24→21:14)
[2018-11-15] MEDS: KETOROLAC 30 MG/ML 1 ML VIAL IVP SCH ×5 (00:24→21:14)
[2018-11-15] MEDS: ONDANSETRON 4 MG/2 ML VIAL IVP SCH ×5 (00:46→23:37)
[2018-11-15] MEDS: diphenhydrAMINE 50 MG/ML 1 ML VIAL IVP PRN (05:11)
[2018-11-15] MEDS: metroNIDAZOLE-NS PMX 500 MG in SALINE 1 100ML.BAG IVPB SCH ×4 (05:12→23:37)
[2018-11-15] MEDS: SODIUM CHLORIDE 0.9% 1,000 ML IV SCH ×3 (05:12→21:13)
[2018-11-15 07:54] LABS: Basophils % (A) 0 %; Eosinophils # (A) 0.1 k/uL (0-0.7); Eosinophils % (A) 0 %; HCT 30.4 % (34.0-46.0); HGB 10.1 gm/dL (11.4-16.0); Lymphocytes # (A) 0.7 k/uL (1.0-4.8); Lymphocytes % (A) 4 %; MCH 27.3 pg (25.0-35.0); MCHC 33.2 g/dL (31.0-37.0); MCV 82.3 fL (80.0-100.0); Monocytes # (A) 0.9 k/uL (0-1.0); Monocytes % (A) 5 %; Neutrophils # (A) 14.9 k/uL (1.3-7.7); Neutrophils % (A) 89 %; Platelet Count 325 k/uL (150-450); RBC 3.69 m/uL (3.80-5.40); RDW 15.5 % (11.5-15.5); WBC 16.7 k/uL (3.8-10.6)
[2018-11-15 08:09] LABS: African American GFR (CKD) >90 (>60 ml/min/1.73 sqM); Anion Gap 8 mmol/L; Blood Urea Nitrogen 9 mg/dL (7-17); Calcium 8.5 mg/dL (8.4-10.2); Carbon Dioxide 24 mmol/L (22-30); Chloride 105 mmol/L (98-107); Glucose 110 mg/dL (74-99); Potassium 4.3 mmol/L (3.5-5.1); Sodium 137 mmol/L (137-145)
[2018-11-15] MEDS: HEPARIN SODIUM,PORCINE 5,000 UNIT/ML 1 ML VIAL SQ SCH ×4 (08:24→21:12)
[2018-11-15] MEDS: ALVIMOPAN 12 MG CAPSULE PO SCH ×2 (08:39→21:11)
[2018-11-15] MEDS: PANTOPRAZOLE 40 MG/10 ML VIAL IVP SCH (08:39)
[2018-11-15] MEDS: LORATADINE-PSEUDOEPH 5-120 MG 1 EACH TAB.ER.12H PO SCH ×2 (08:39→21:13)
[2018-11-15] MEDS: SODIUM FERRIC GLUCONAT-SUCROSE 125 MG in SODIUM CHLORIDE 0.9% 100 ML IVPB SCH (09:49)
--- NOTE | 2018-11-15 11:14 | P.PN ---
Progress Note - Text Progress Note Date: 11/15/18 The patient's postoperative day 1 from open low anterior section for diverticulitis/colovesical fistula. Patient is doing quite well. She has minimal pain. On exam her vital signs are stable. Her abdomen soft. Incision site is clean dry intact. Status post low anterior section. Patient remained on clear liquid diet. She'll have her diet advanced once her bowel function returns.
--- NOTE | 2018-11-15 11:53 | P.PN ---
Progress Note - Text 11/15/2018 1122am 62-year-old female status post sigmoid colectomy by Dr. Ralph. Patient has an epidural catheter for postop pain control running at 7 mL an hour with a VAS of 0. Dressing clean dry and intact. No complains of nausea vomiting or pruritus. No sensory or motor weakness noted. Plan to continue epidural infusion
[2018-11-15] MEDS: BENICAR 40 MG PO SCH ×2 (19:15→21:13)
[2018-11-15] MEDS: LEVOFLOXACIN 500MG-D5W PMX 500 MG in DEXTROSE/WATER 1 100ML.BAG IVPB SCH (21:12)
[2018-11-16] MEDS: metroNIDAZOLE-NS PMX 500 MG in SALINE 1 100ML.BAG IVPB SCH ×3 (05:20→17:43)
[2018-11-16] MEDS: ONDANSETRON 4 MG/2 ML VIAL IVP SCH ×3 (05:20→17:44)
[2018-11-16] MEDS: diphenhydrAMINE 50 MG/ML 1 ML VIAL IVP PRN ×2 (05:20→20:21)
[2018-11-16] MEDS: SODIUM CHLORIDE 0.9% 1,000 ML IV SCH ×3 (05:36→20:22)
[2018-11-16] MEDS: HEPARIN SODIUM,PORCINE 5,000 UNIT/ML 1 ML VIAL SQ SCH ×4 (07:25→20:21)
[2018-11-16] MEDS: PANTOPRAZOLE 40 MG/10 ML VIAL IVP SCH (07:57)
[2018-11-16] MEDS: ALVIMOPAN 12 MG CAPSULE PO SCH ×2 (07:58→20:21)
[2018-11-16] MEDS: LORATADINE-PSEUDOEPH 5-120 MG 1 EACH TAB.ER.12H PO SCH ×2 (07:58→20:22)
[2018-11-16 08:25] LABS: Calcium 8.3 mg/dL (8.4-10.2); Potassium 3.8 mmol/L (3.5-5.1)
[2018-11-16] MEDS: SODIUM FERRIC GLUCONAT-SUCROSE 125 MG in SODIUM CHLORIDE 0.9% 100 ML IVPB SCH (08:53)
[2018-11-16 09:04] LABS: Anisocytosis Slight; Basophils # (A) 0.1 k/uL (0-0.2); Basophils % (A) 1 %; Eosinophils # (A) 0.1 k/uL (0-0.7); Eosinophils % (A) 1 %; HCT 29.4 % (34.0-46.0); HGB 9.8 gm/dL (11.4-16.0); Lymphocytes # (A) 1.9 k/uL (1.0-4.8); Lymphocytes % (A) 15 %; MCH 27.4 pg (25.0-35.0); MCHC 33.2 g/dL (31.0-37.0); MCV 82.4 fL (80.0-100.0); Mean Platelet Volume 9.1; Monocytes # (A) 0.9 k/uL (0-1.0); Monocytes % (A) 7 %; Neutrophils # (A) 9.2 k/uL (1.3-7.7); Neutrophils % (A) 75 %; Platelet Count 298 k/uL (150-450); RBC 3.56 m/uL (3.80-5.40); RDW 16.1 % (11.5-15.5); WBC 12.3 k/uL (3.8-10.6)
--- NOTE | 2018-11-16 10:47 | P.PN ---
Progress Note - Text Progress Note Date: 11/16/18 The patient is resting comfortably in her bed. She has some mild incisional pain. On exam her vital signs are stable. Her abdomen soft. Incision site is clean dry intact. Status post low anterior resection for diverticulitis. Patient is receiving iron transfusions for postop anemia. Overall she is doing well.
[2018-11-16] MEDS: KETOROLAC 30 MG/ML 1 ML VIAL IVP SCH ×2 (12:21→17:04)
[2018-11-16] MEDS: BENICAR 40 MG PO SCH (20:15)
[2018-11-16] MEDS: LACTATED RINGERS 1,000 ML IV SCH (20:23)
[2018-11-16] MEDS: LEVOFLOXACIN 500MG-D5W PMX 500 MG in DEXTROSE/WATER 1 100ML.BAG IVPB SCH (20:25)
[2018-11-17] MEDS: ONDANSETRON 4 MG/2 ML VIAL IVP SCH ×4 (00:04→18:02)
[2018-11-17] MEDS: metroNIDAZOLE-NS PMX 500 MG in SALINE 1 100ML.BAG IVPB SCH ×4 (00:05→18:03)
[2018-11-17] MEDS: SODIUM CHLORIDE 0.9% 1,000 ML IV SCH ×3 (05:44→23:37)
--- NOTE | 2018-11-17 06:58 | P.PN ---
Progress Note - Text 11/16/2018 1126 62-year-old female status post sigmoid colectomy by Dr. Raplh. Patient has an epidural catheter for postop pain control with solution running at 4 mL an hour with a VAS of 0. No complains of nausea vomiting, dressing clean dry and intact. Plan to continue epidural for another day and were DC tomorrow morning
[2018-11-17 07:23] LABS: Basophils % (A) 0 %; Eosinophils # (A) 0.2 k/uL (0-0.7); Eosinophils % (A) 2 %; HCT 27.8 % (34.0-46.0); HGB 9.4 gm/dL (11.4-16.0); Lymphocytes # (A) 1.3 k/uL (1.0-4.8); Lymphocytes % (A) 15 %; MCH 27.6 pg (25.0-35.0); MCHC 33.7 g/dL (31.0-37.0); Mean Platelet Volume 7.2; Monocytes # (A) 0.6 k/uL (0-1.0); Monocytes % (A) 7 %; Neutrophils # (A) 6.1 k/uL (1.3-7.7); Neutrophils % (A) 73 %; Platelet Count 258 k/uL (150-450); RBC 3.39 m/uL (3.80-5.40); RDW 15.6 % (11.5-15.5); WBC 8.3 k/uL (3.8-10.6)
[2018-11-17 07:41] LABS: Calcium 8.2 mg/dL (8.4-10.2); Potassium 3.6 mmol/L (3.5-5.1)
[2018-11-17] MEDS: HEPARIN SODIUM,PORCINE 5,000 UNIT/ML 1 ML VIAL SQ SCH ×3 (08:40→20:59)
[2018-11-17] MEDS: PANTOPRAZOLE 40 MG/10 ML VIAL IVP SCH (09:41)
[2018-11-17] MEDS: LORATADINE-PSEUDOEPH 5-120 MG 1 EACH TAB.ER.12H PO SCH ×2 (09:41→20:59)
[2018-11-17] MEDS: ALVIMOPAN 12 MG CAPSULE PO SCH ×2 (09:42→20:59)
[2018-11-17] MEDS: SODIUM FERRIC GLUCONAT-SUCROSE 125 MG in SODIUM CHLORIDE 0.9% 100 ML IVPB SCH (09:42)
[2018-11-17] MEDS ORDERED: HYDROcodone/APAP 5-325MG 1 EACH TAB PO PRN (12:05)
[2018-11-17] MEDS ORDERED: HYDROmorphone 0.5 MG/0.5 ML SYRINGE IVP PRN (12:05)
--- NOTE | 2018-11-17 12:23 | P.PN ---
<Sheri Abdullahi A - Last Filed: 11/17/18 12:17> Subjective Progress Note Date: 11/17/18 CHIEF COMPLAINT: Large bowel obstruction HISTORY OF PRESENT ILLNESS: Patient examined at the bedside. She is status post robotic-assisted lysis of adhesions, open resection of small bowel to colon and colon-colon fistula, small bowel resection with primary anastomosis, and open lower anterior resection performed on 11-14-18. 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 POD # 3. She is sitting up in the chair this morning. Epidural has been discontinued. She reports her pain is tolerable. She is tolerating clear liquid diet. She denies nausea or vomiting. She is not passing flatus. Denies BM. She reports she has not been up ambulating very often and is hoping to increase her ambulation today. WBC 8.3. Hemoglobin 9.4. Vital signs have been stable. She is afebrile. PHYSICAL EXAM: VITAL SIGNS: Reviewed. GENERAL: Well-developed in no acute distress. HEENT: No sclera icterus. Extraocular movements grossly intact. Moist buccal mucosa. Head is atraumatic, normocephalic. Hears conversational speech. No nasal drainage. NECK: Supple without lymphadenopathy. CHEST: Non-labored respirations and equal bilateral excursions. CARDIOVASCULAR: Regular rate with regular rhythm. Palpable 2+ radial pulses. ABDOMEN: Soft. Nondistended. Appropriate surgical tenderness. Hypoactive positive bowel sounds. PREVENA wound system intact. Connected to wall suction. No drainage noted. MEÑO with serosanguineous drainage. MUSCULOSKELETAL: No clubbing, cyanosis or edema. NEUROLOGIC: No focal or lateralizing signs. Cranial nerves II through XII grossly intact. PSYCH: Appropriate affect. Alert and oriented to person, place and time. SKIN: Well perfused. Good skin turgor. ASSESSMENT: 1. 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 S/P status post robotic-assisted lysis of adhesions, open resection of small bowel to colon and colon-colon fistula, small bowel resection with primary anastomosis, and open lower anterior resection 2. Large paraesophageal hiatal hernia with bleeding 3. Hypertensive heart disease 4. Iron deficiency anemia PLAN: 1. Pain control. Epidural discontinued this morning. IV dilaudid and Ramsey ordered PRN 2. Activity as tolerated. Patient encouraged to increase activity today and ambulate in the hallways 3. Incentive spirometry 4. Continue antibiotics 5. Continue clear liquid diet. Await bowel function. Continue Entereg 6. Monitor drainage from MEÑO drain. Continue PREVENA to wall suction. July isconnect so patient can be ambulatory. Nurse practitioner note has been reviewed by physician. Signing provider agrees with the documented findings, assessment, and plan of care. Objective - Vital Signs Vital signs: Vital Signs Temp 98.5 F 11/17/18 09:06 Pulse 85 11/17/18 09:06 Resp 16 11/17/18 09:06 BP 152/84 11/17/18 09:06 Pulse Ox 94 L 11/17/18 09:06 Intake & Output 11/16/18 11/17/18 11/17/18 18:59 06:59 18:59 Intake Total 400 1900 300 Output Total 1040 20 Balance 400 860 280 Weight 81.647 kg Intake: Intake, IV Titration 1800 Amount Levofloxacin 500Mg-D5w 100 Pmx 500 mg In Dextrose/ Water 1 100ml.bag @ 100 mls/hr IVPB 2100 [facility] Rx#: [id number] Sodium Chloride 0.9% 1, 1500 000 ml @ 125 mls/hr IV . Q8H [facility] Rx#:[id number] metroNIDAZOLE-NS PMX 500 200 mg In Saline 1 100ml.bag @ 100 mls/hr IVPB Q6HR [facility] Rx#:[id number] Oral 400 100 300 Output: Drainage 40 20 Abdomen 40 20 Urine 1000 Uretheral (Swift) 1000 Other: Voiding Method Indwelling Catheter Indwelling Catheter - Labs CBC & Chem 7: 11/17/18 06:47 11/17/18 06:47 Labs: Abnormal Lab Results - Last 24 Hours (Table) 11/17/18 11/17/18 Range/Units 06:47 06:47 RBC 3.39 L (3.80-5.40) m/uL Hgb 9.4 L (11.4-16.0) gm/dL Hct 27.8 L (34.0-46.0) % RDW 15.6 H (11.5-15.5) % Calcium 8.2 L (8.4-10.2) mg/dL Assessment and Plan (1) Anemia, iron deficiency Current Visit: Yes Status: Acute Code(s): D50.9 - IRON DEFICIENCY ANEMIA, UN SPECIFIED SNOMED Code(s): 68114405 (2) Hypertensive heart disease Current Visit: Yes Status: Acute Code(s): I11.9 - HYPERTENSIVE HEART DISEASE WITHOUT HEART FAILURE SNOMED Code(s): 39546527 (3) Large bowel obstruction Current Visit: Yes Status: Acute Code(s): K56.609 - UNSP INTESTNL OBST, UNSP TO PARTIAL VERSUS COMPLETE OBST SNOMED Code(s): 850787573 (4) Neoplasm of sigmoid colon Current Visit: Yes Status: Acute Code(s): D49.0 - NEOPLASM OF UNSPECIFIED BEHAVIOR OF DIGESTIVE SYSTEM SNOMED Code(s): 000593790 <Umm Ralph N - Last Filed: 11/17/18 14:16> Subjective Still awaiting passage of flatus. No vomiting. Continue hospitalization secondary to small bowel to colon fistula Objective - Vital Signs Vital signs: Vital Signs Temp 98.5 F 11/17/18 09:06 Pulse 85 11/17/18 09:06 Resp 16 11/17/18 09:06 BP 152/84 11/17/18 09:06 Pulse Ox 94 L 11/17/18 09:06 Intake & Output 11/16/18 11/17/18 11/17/18 18:59 06:59 18:59 Intake Total 400 1900 300 Output Total 1040 20 Balance 400 860 280 Weight 81.647 kg Intake: Intake, IV Titration 1800 Amount Levofloxacin 500Mg-D5w 100 Pmx 500 mg In Dextrose/ Water 1 100ml.bag @ 100 mls/hr IVPB 2100 [facility] Rx#: [id number] Sodium Chloride 0.9% 1, 1500 000 ml @ 125 mls/hr IV . Q8H [facility] Rx#:[id number] metroNIDAZOLE-NS PMX 500 200 mg In Saline 1 100ml.bag @ 100 mls/hr IVPB Q6HR [facility] Rx#:[id number] Oral 400 100 300 Output: Drainage 40 20 Abdomen 40 20 Urine 1000 Uretheral (Swift) 1000 Other: Voiding Method Indwelling Catheter Indwelling Catheter - Labs CBC & Chem 7: 11/17/18 06:47 11/17/18 06:47 Labs: Abnormal Lab Results - Last 24 Hours (Table) 11/17/18 11/17/18 Range/Units 06:47 06:47 RBC 3.39 L (3.80-5.40) m/uL Hgb 9.4 L (11.4-16.0) gm/dL Hct 27.8 L (34.0-46.0) % RDW 15.6 H (11.5-15.5) % Calcium 8.2 L (8.4-10.2) mg/dL Assessment and Plan (1) Diverticulitis large intestine w/o perforation or abscess w/o bleeding Current Visit: Yes Status: Acute Code(s): K57.32 - DVTRCLI OF LG INT W/O PERFORATION OR ABSCESS W/O BLEEDING SNOMED Code(s): 5559606 (2) Neoplasm of sigmoid colon Current Visit: Yes Status: Acute Code(s): D49.0 - NEOPLASM OF UNSPECIFIED BEHAVIOR OF DIGESTIVE SYSTEM SNOMED Code(s): 893325570 (3) Hypertensive heart disease Current Visit: Yes Status: Acute Code(s): I11.9 - HYPERTENSIVE HEART DISEASE WITHOUT HEART FAILURE SNOMED Code(s): 28369929 (4) Anemia, iron deficiency Current Visit: Yes Status: Acute Code(s): D50.9 - IRON DEFICIENCY ANEMIA, UNSPECIFIED SNOMED Code(s): 66149216 (5) Paraesophageal hernia with obstruction but no gangrene Current Visit: Yes Status: Acute Code(s): K44.0 - DIAPHRAGMATIC HERNIA WITH OBSTRUCTION, WITHOUT GANGRENE SNOMED Code(s): 183947950 (6) Obesity (BMI 30.0-34.9) Current Visit: Yes Status: Acute Code(s): E66.9 - OBESITY, UNSPECIFIED SNOMED Code(s): 671828243674749 (7) Large bowel obstruction Current Visit: Yes Status: Acute Code(s): K56.609 - UNSP INTESTNL OBST, UNSP TO PARTIAL VERSUS COMPLETE OBST SNOMED Code(s): 521375714 (8) Colon polyp Current Visit: Yes Status: Acute Code(s): K63.5 - POLYP OF COLON SNOMED Code(s): 65408255
--- NOTE | 2018-11-17 12:37 | P.PN ---
Progress Note - Text 11/17/2018 707am 62-year-old female status post sigmoid colectomy by Dr. Ralph. Patient has an epidural catheter for postop pain control with the solution running at 4 mL an hour with a VAS of1. No motor or sensory deficit noted, able to stand up without any. Plan to DC the epidural
[2018-11-17] MEDS: LEVOFLOXACIN 500MG-D5W PMX 500 MG in DEXTROSE/WATER 1 100ML.BAG IVPB SCH (20:59)
[2018-11-17] MEDS: BENICAR 40 MG PO SCH (21:00)
[2018-11-17] MEDS: LACTATED RINGERS 1,000 ML IV SCH (23:37)
[2018-11-18] MEDS: ONDANSETRON 4 MG/2 ML VIAL IVP SCH ×4 (00:28→11:39)
[2018-11-18] MEDS: metroNIDAZOLE-NS PMX 500 MG in SALINE 1 100ML.BAG IVPB SCH ×4 (00:29→18:06)
[2018-11-18] MEDS: SODIUM CHLORIDE 0.9% 1,000 ML IV SCH (06:01)
[2018-11-18] MEDS ORDERED: MAGNESIUM HYDROXIDE 2,400 MG/10 ML CUP PO ONE (08:33)
[2018-11-18] MEDS: PANTOPRAZOLE 40 MG/10 ML VIAL IVP SCH (08:41)
[2018-11-18] MEDS: ALVIMOPAN 12 MG CAPSULE PO SCH ×2 (08:41→20:00)
[2018-11-18] MEDS: HEPARIN SODIUM,PORCINE 5,000 UNIT/ML 1 ML VIAL SQ SCH ×2 (08:41→20:00)
[2018-11-18] MEDS: LORATADINE-PSEUDOEPH 5-120 MG 1 EACH TAB.ER.12H PO SCH ×2 (08:41→20:00)
[2018-11-18] MEDS: SODIUM FERRIC GLUCONAT-SUCROSE 125 MG in SODIUM CHLORIDE 0.9% 100 ML IVPB SCH (09:01)
[2018-11-18 10:03] LABS: HCT 30.3 % (34.0-46.0); HGB 10.1 gm/dL (11.4-16.0); MCH 26.9 pg (25.0-35.0); MCHC 33.4 g/dL (31.0-37.0); MCV 80.8 fL (80.0-100.0); Mean Platelet Volume 7.7; Platelet Count 303 k/uL (150-450); RBC 3.75 m/uL (3.80-5.40); RDW 15.8 % (11.5-15.5); WBC 8.7 k/uL (3.8-10.6)
[2018-11-18] MEDS: METOCLOPRAMIDE 5 MG/ML 2 ML VIAL IVP SCH ×2 (11:44→18:06)
--- NOTE | 2018-11-18 13:29 | P.PN ---
<Sheri Abdullahi A - Last Filed: 11/18/18 13:24> Subjective Progress Note Date: 11/18/18 CHIEF COMPLAINT: Large bowel obstruction HISTORY OF PRESENT ILLNESS: Patient examined at the bedside. She is status post robotic-assisted lysis of adhesions, open resection of small bowel to colon and colon-colon fistula, small bowel resection with primary anastomosis, and open lower anterior resection performed on 11-14-18. 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 POD # 4. She is sitting up in the chair this morning. Epidural discontinued yesterday. Pain is controlled with current regimen. Swift catheter discontinued yesterday. She is voiding without difficulty. She is tolerating clear liquid diet. Denies passing flatus. Denies BM. She has been ambulating some but would like to increase her activity today. PHYSICAL EXAM: VITAL SIGNS: Reviewed. GENERAL: Well-developed in no acute distress. HEENT: No sclera icterus. Extraocular movements grossly intact. Moist buccal mucosa. Head is atraumatic, normocephalic. Hears conversational speech. No nasal drainage. NECK: Supple without lymphadenopathy. CHEST: Non-labored respirations and equal bilateral excursions. CARDIOVASCULAR: Regular rate with regular rhythm. Palpable 2+ radial pulses. ABDOMEN: Soft. Nondistended. Appropriate surgical tenderness. Hypoactive positive bowel sounds. PREVENA wound system intact. Connected to wall suction. No drainage noted. MEÑO with serosanguineous drainage. MUSCULOSKELETAL: No clubbing, cyanosis or edema. NEUROLOGIC: No focal or lateralizing signs. Cranial nerves II through XII grossly intact. PSYCH: Appropriate affect. Alert and oriented to person, place and time. SKIN: Well perfused. Good skin turgor. ASSESSMENT: 1. 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 S/P status post robotic-assisted lysis of adhesions, open resection of small bowel to colon and colon-colon fistula, small bowel resection with primary anastomosis, and open lower anterior resection 2. Large paraesophageal hiatal hernia with bleeding 3. Hypertensive heart disease 4. Iron deficiency anemia PLAN: 1. Pain control. IV dilaudid and [place] ordered PRN 2. Activity as tolerated. Patient encouraged to increase activity today and ambulate in the hallways 3. Incentive spirometry 4. Continue antibiotics. 5. Continue clear liquid diet. Await bowel function. Discontinue maintenance IV fluids. Continue Entereg. Add Reglan 10mg IV q6 hours. Milk of Magnesium 2400mg x 1 dose now. 6. Monitor drainage from MEÑO drain. Continue PREVENA to wall suction. May disconnect so patient can be ambulatory. Nurse practitioner note has been reviewed by physician. Signing provider agrees with the documented findings, assessment, and plan of care. Objective - Vital Signs Vital signs: Vital Signs Temp 98.0 F 11/18/18 06:54 Pulse 67 11/18/18 06:54 Resp 12 11/18/18 06:54 BP 124/79 11/18/18 06:54 Pulse Ox 98 11/18/18 06:54 Intake & Output 11/17/18 11/18/18 11/18/18 18:59 06:59 18:59 Intake Total 300 1700 240 Output Total 1520 1430 Balance -1220 270 240 Weight 81.647 kg Intake: Intake, IV Titration 1500 Amount Sodium Chloride 0.9% 1, 1500 000 ml @ 125 mls/hr IV . Q8H [facility] Rx#:[id number] Oral 300 200 240 Output: Drainage 20 80 Abdomen 20 80 Urine 1500 1350 Uretheral (Swift) 1350 Other: Voiding Method Indwelling Catheter Toilet Toilet # Voids 2 - Labs CBC & Chem 7: 11/18/18 09:44 11/17/18 06:47 Labs: Abnormal Lab Results - Last 24 Hours (Table) 11/18/18 Range/Units 09:44 RBC 3.75 L (3.80-5.40) m/uL Hgb 10.1 L (11.4-16.0) gm/dL Hct 30.3 L (34.0-46.0) % RDW 15.8 H (11.5-15.5) % Assessment and Plan (1) Anemia, iron deficiency Current Visit: Yes Status: Acute Code(s): D50.9 - IRON DEFICIENCY ANEMIA, U NSPECIFIED SNOMED Code(s): 01947340 (2) Hypertensive heart disease Current Visit: Yes Status: Acute Code(s): I11.9 - HYPERTENSIVE HEART DISEASE WITHOUT HEART FAILURE SNOMED Code(s): 17256842 (3) Large bowel obstruction Current Visit: Yes Status: Acute Code(s): K56.609 - UNSP INTESTNL OBST, UNSP TO PARTIAL VERSUS COMPLETE OBST SNOMED Code(s): 919899703 (4) Neoplasm of sigmoid colon Current Visit: Yes Status: Acute Code(s): D49.0 - NEOPLASM OF UNSPECIFIED BEHAVIOR OF DIGESTIVE SYSTEM SNOMED Code(s): 349014066 <Umm Ralph N - Last Filed: 11/19/18 00:56> Subjective Overall, doing well. Tolerating diet. Add Reglan and MOM for GI motility. Objective - Vital Signs Vital signs: Vital Signs Temp 98.3 F 11/18/18 19:54 Pulse 84 11/18/18 19:54 Resp 18 11/18/18 19:54 BP 150/80 11/18/18 19:54 Pulse Ox 96 11/18/18 19:54 Intake & Output 11/18/18 11/18/18 11/19/18 06:59 18:59 06:59 Intake Total 1700 240 Output Total 1430 50 Balance 270 190 Intake: Intake, IV Titration 1500 Amount Sodium Chloride 0.9% 1, 1500 000 ml @ 125 mls/hr IV . Q8H [facility] Rx#:[id number] Oral 200 240 Output: Drainage 80 50 Abdomen 80 50 Urine 1350 Uretheral (Swift) 1350 Other: Voiding Method Toilet Toilet # Voids 2 - Labs CBC & Chem 7: 11/18/18 09:44 11/17/18 06:47 Labs: Abnormal Lab Results - Last 24 Hours (Table) 11/18/18 Range/Units 09:44 RBC 3.75 L (3.80-5.40) m/uL Hgb 10.1 L (11.4-16.0) gm/dL Hct 30.3 L (34.0-46.0) % RDW 15.8 H (11.5-15.5) % Assessment and Plan (1) Diverticulitis large intestine w/o perforation or abscess w/o bleeding Current Visit: Yes Status: Acute Code(s): K57.32 - DVTRCLI OF LG INT W/O PERFORATION OR ABSCESS W/O BLEEDING SNOMED Code(s): 5676480 (2) Neoplasm of sigmoid colon Current Visit: Yes Status: Acute Code(s): D49.0 - NEOPLASM OF UNSPECIFIED BEHAVIOR OF DIGESTIVE SYSTEM SNOMED Code(s): 911585167 (3) Hypertensive heart disease Current Visit: Yes Status: Acute Code(s): I11.9 - HYPERTENSIVE HEART DISEASE WITHOUT HEART FAILURE SNOMED Code(s): 95782150 (4) Anemia, iron deficiency Current Visit: Yes Status: Acute Code(s): D50.9 - IRON DEFICIENCY ANEMIA, UNSPECIFIED SNOMED Code(s): 89961838 (5) Paraesophageal hernia with obstruction but no gangrene Current Visit: Yes Status: Acute Code(s): K44.0 - DIAPHRAGMATIC HERNIA WITH OBSTRUCTION, WITHOUT GANGRENE SNOMED Code(s): 389369755 (6) Obesity (BMI 30.0-34.9) Current Visit: Yes Status: Acute Code(s): E66.9 - OBESITY, UNSPECIFIED SNOMED Code(s): 566216979819382 (7) Large bowel obstruction Current Visit: Yes Status: Acute Code(s): K56.609 - UNSP INTESTNL OBST, UNSP TO PARTIAL VERSUS COMPLETE OBST SNOMED Code(s): 211883303 (8) Colon polyp Current Visit: Yes Status: Acute Code(s): K63.5 - POLYP OF COLON SNOMED Code(s): 41514849
[2018-11-18] MEDS: BENICAR 40 MG PO SCH (20:00)
[2018-11-18] MEDS: LEVOFLOXACIN 500MG-D5W PMX 500 MG in DEXTROSE/WATER 1 100ML.BAG IVPB SCH (22:10)
[2018-11-19] MEDS: metroNIDAZOLE-NS PMX 500 MG in SALINE 1 100ML.BAG IVPB SCH ×3 (00:17→11:27)
[2018-11-19] MEDS: METOCLOPRAMIDE 5 MG/ML 2 ML VIAL IVP SCH ×3 (00:17→11:27)
[2018-11-19] MEDS: ONDANSETRON 4 MG/2 ML VIAL IVP SCH ×3 (01:07→11:31)
[2018-11-19 07:05] LABS: Anisocytosis Slight; HCT 30.6 % (34.0-46.0); MCH 27.3 pg (25.0-35.0); MCHC 32.8 g/dL (31.0-37.0); MCV 83.1 fL (80.0-100.0); Mean Platelet Volume 8.1; Platelet Count 330 k/uL (150-450); RBC 3.68 m/uL (3.80-5.40); RDW 18.2 % (11.5-15.5); WBC 8.7 k/uL (3.8-10.6)
[2018-11-19 07:20] LABS: African American GFR (CKD) >90 (>60 ml/min/1.73 sqM); Anion Gap 8 mmol/L; Blood Urea Nitrogen 6 mg/dL (7-17); Calcium 8.8 mg/dL (8.4-10.2); Carbon Dioxide 28 mmol/L (22-30); Chloride 103 mmol/L (98-107); Glucose 99 mg/dL (74-99); Potassium 3.4 mmol/L (3.5-5.1); Sodium 139 mmol/L (137-145)
[2018-11-19 07:44] VITALS: BP 151/87; PULSE 79; RESP 15; TEMP 97.7
[2018-11-19] MEDS: PANTOPRAZOLE 40 MG/10 ML VIAL IVP SCH (08:29)
[2018-11-19] MEDS: ALVIMOPAN 12 MG CAPSULE PO SCH (08:29)
[2018-11-19] MEDS: LORATADINE-PSEUDOEPH 5-120 MG 1 EACH TAB.ER.12H PO SCH (08:29)
[2018-11-19] MEDS: POTASSIUM CHLORIDE ER 20 MEQ TAB.ER PO SCH ×3 (08:29→10:29)
[2018-11-19] MEDS: HEPARIN SODIUM,PORCINE 5,000 UNIT/ML 1 ML VIAL SQ SCH (08:29)
--- NOTE | 2018-11-19 12:05 | P.PN ---
<Sheri Abdullahi A - Last Filed: 11/19/18 12:03> Subjective Progress Note Date: 11/19/18 CHIEF COMPLAINT: Large bowel obstruction HISTORY OF PRESENT ILLNESS: Patient examined at the bedside. She is status post robotic-assisted lysis of adhesions, open resection of small bowel to colon and colon-colon fistula, small bowel resection with primary anastomosis, and open lower anterior resection performed on 11-14-18. 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 POD # 5. Patient examined this morning. She is sitting up in the chair. Pain is cont rolled on current regimen. She is tolerating clear liquid diet. Reports 1 bowel movement overnight and another this morning. Denies nausea or vomiting. PREVENA became disconnected yesterday evening and optifoam dressing was placed to midline incision. Vital signs are stable. WBC 8.7. Hemoglobin 10.0. Potassium 3.4. Magnesium 1.9. PHYSICAL EXAM: VITAL SIGNS: Reviewed. GENERAL: Well-developed in no acute distress. HEENT: No sclera icterus. Extraocular movements grossly intact. Moist buccal mucosa. Head is atraumatic, normocephalic. Hears conversational speech. No nasal drainage. NECK: Supple without lymphadenopathy. CHEST: Non-labored respirations and equal bilateral excursions. CARDIOVASCULAR: Regular rate with regular rhythm. Palpable 2+ radial pulses. ABDOMEN: Soft. Nondistended. Appropriate surgical tenderness. Hypoactive positive bowel sounds. Optifoam dressing to midline incision with serous drainage. MEÑO with serosanguineous drainage. MUSCULOSKELETAL: No clubbing, cyanosis or edema. NEUROLOGIC: No focal or lateralizing signs. Cranial nerves II through XII grossly intact. PSYCH: Appropriate affect. Alert and oriented to person, place and time. SKIN: Well perfused. Good skin turgor. ASSESSMENT: 1. 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 S/P status post robotic-assisted lysis of adhesions, open resection of small bowel to colon and colon-colon fistula, small bowel resection with primary anastomosis, and open lower anterior resection 2. Large paraesophageal hiatal hernia with bleeding 3. Hypertensive heart disease 4. Iron deficiency anemia PLAN: 1. Pain control. Continue [place] as needed. 2. Activity as tolerated. Patient encouraged to increase activity today and ambulate in the hallways 3. Incentive spirometry 4. Continue antibiotics 5. Advance diet 6. New optifoam dressings ordered 7. Anticipate discharge home this afternoon versus tomorrow Nurse practitioner note has been reviewed by physician. Signing provider agrees with the documented findings, assessment, and plan of care. Objective - Vital Signs Vital signs: Vital Signs Temp 97.7 F 11/19/18 07:43 Pulse 79 11/19/18 07:43 Resp 15 11/19/18 07:43 BP 151/87 11/19/18 07:43 Pulse Ox 97 11/19/18 07:43 Intake & Output 11/18/18 11/19/18 11/19/18 18:59 06:59 18:59 Intake Total 240 480 Output Total 50 Balance 190 480 Intake: Oral 240 480 Output: Drainage 50 Abdomen 50 Other: Voiding Method Toilet - Labs CBC & Chem 7: 11/19/18 06:15 11/19/18 06:15 Labs: Abnormal Lab Results - Last 24 Hours (Table) 11/19/18 11/19/18 Range/Units 06:15 06:15 RBC 3.68 L (3.80-5.40) m/uL Hgb 10.0 L (11.4-16.0) gm/dL Hct 30.6 L (34.0-46.0) % RDW 18.2 H (11.5-15.5) % Potassium 3.4 L (3.5-5.1) mmol/L BUN 6 L (7-17) mg/dL Assessment and Plan (1) Anemia, iron deficiency Status: Acute Code(s): D50.9 - IRON DEFICIENCY ANEMIA, UNSPECIFIED SNOMED Code(s): 15245015 (2) Hypertensive heart disease Status: Acute Code(s): I11.9 - HYPERTENSIVE HEART DISEASE WITHOUT HEART FAILURE SNOMED Code(s): 72550807 (3) Large bowel obstruction Status: Acute Code(s): K56.609 - UNSP INTESTNL OBST, UNSP TO PARTIAL VERSUS COMPLETE OBST SNOMED Code(s): 006931795 (4) Neoplasm of sigmoid colon Status: Acute Code(s): D49.0 - NEOPLASM OF UNSPECIFIED BEHAVIOR OF DIGESTIVE SYSTEM SNOMED Code(s): 505375359 <Umm Ralph N - Last Filed: 11/19/18 17:11> Objective - Vital Signs Vital signs: Vital Signs Temp 97.7 F 11/19/18 07:43 Pulse 79 11/19/18 07:43 Resp 15 11/19/18 07:43 BP 151/87 11/19/18 07:43 Pulse Ox 97 11/19/18 07:43 Intake & Output 11/18/18 11/19/18 11/19/18 18:59 06:59 18:59 Intake Total 240 660 Output Total 50 20 Balance 190 640 Intake: Oral 240 660 Output: Drainage 50 20 Abdomen 50 20 Other: Voiding Method Toilet - Labs CBC & Chem 7: 11/19/18 06:15 11/19/18 06:15 Labs: Abnormal Lab Results - Last 24 Hours (Table) 11/19/18 11/19/18 Range/Units 06:15 06:15 RBC 3.68 L (3.80-5.40) m/uL Hgb 10.0 L (11.4-16.0) gm/dL Hct 30.6 L (34.0-46.0) % RDW 18.2 H (11.5-15.5) % Potassium 3.4 L (3.5-5.1) mmol/L BUN 6 L (7-17) mg/dL Assessment and Plan (1) Diverticulitis large intestine w/o perforation or abscess w/o bleeding Status: Acute Code(s): K57.32 - DVTRCLI OF LG INT W/O PERFORATION OR ABSCESS W/O BLEEDING SNOMED Code(s): 6735543 (2) Neoplasm of sigmoid colon Status: Acute Code(s): D49.0 - NEOPLASM OF UNSPECIFIED BEHAVIOR OF DIGESTIVE SYSTEM SNOMED Code(s): 346213202 (3) Hypertensive heart disease Status: Acute Code(s): I11.9 - HYPERTENSIVE HEART DISEASE WITHOUT HEART FAILURE SNOMED Code(s): 65256145 (4) Anemia, iron deficiency Status: Acute Code(s): D50.9 - IRON DEFICIENCY ANEMIA, UNSPECIFIED SNOMED Code(s): 49841996 (5) Paraesophageal hernia with obstruction but no gangrene Status: Acute Code(s): K44.0 - DIAPHRAGMATIC HERNIA WITH OBSTRUCTION, WITHOUT GANGRENE SNOMED Code(s): 712011181 (6) Obesity (BMI 30.0-34.9) Status: Acute Code(s): E66.9 - OBESITY, UNSPECIFIED SNOMED Code(s): 4 [id number] (7) Large bowel obstruction Status: Acute Code(s): K56.609 - UNSP INTESTNL OBST, UNSP TO PARTIAL VERSUS COMPLETE OBST SNOMED Code(s): 354120759 (8) Colon polyp Status: Acute Code(s): K63.5 - POLYP OF COLON SNOMED Code(s): 65898984
--- NOTE | 2018-11-19 13:43 | P.DS ---
<Sheri Abdullahi Wilma - Last Filed: 11/19/18 13:38> Providers Expected date of discharge: 11/19/18 - Discharge Diagnosis(es) (1) Anemia, iron deficiency Status: Acute (2) Hypertensive heart disease Status: Acute (3) Large bowel obstruction Status: Acute (4) Neoplasm of sigmoid colon Status: Acute Hospital Course: The patient is a 62-year-old female who during colonoscopy has an obstructive lesion along the sigmoid colon. Neoplasm cannot be excluded. She has personal history of previous ruptured diverticulitis over 8-9 months ago. She denies any current abdominal pain other than cramping. No reports of recent fevers or chills. She has been passing flatus since her colonoscopy. She does have pers onal history of anemia. Upper endoscopy was also consistent with large hiatal hernia with bleeding ulcers. She reports no passage of stool in her urine. Patient was admitted to the hospital after colonoscopy for bowel prep and surgical intervention. Patient was evaluated by cardiology and cleared for surgery. She is status post robotic-assisted lysis of adhesions, open resection of small bowel to colon and colon-colon fistula, small bowel resection with primary anastomosis, and open lower anterior resection performed on 11-14-18. 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 Patient is doing well postoperatively with no immediate complications. She is to lerating full liquid diet. Denies nausea or vomiting. Passing flatus and having BMs. Pain controlled on oral medications. Vital signs have been stable. She is stable for DC home today with MEÑO drain. She will follow up with Dr. Ralph on Saturday. Please see EMR for further hospital course details. Discharge Diagnosis: 1. 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 S/P status post robotic-assisted lysis of adhesions, open resection of small bowel to colon and colon-colon fistula, small bowel resection with primary anastomosis, and open lower anterior resection 2. Large paraesophageal hiatal hernia with bleeding 3. Hypertensive heart disease 4. Iron deficiency anemia Nurse practitioner note has been reviewed by physician. Signing provider agrees with the documented findings, assessment, and plan of care. Patient Condition at Discharge: Stable Plan - Discharge Summary Discharge Rx Participant: Yes New Discharge Prescriptions: New Hydrocodone/Acetaminophen [[place] 5-325] 1 tab PO Q4HR PRN 3 Days #18 tab PRN Reason: Pain Continue Olmesartan Medoxomil [Benicar] 40 mg PO HS Discontinued Ferrous Sulfate [Feosol] 325 mg PO DAILY Multivitamins, Thera [Multivitamin (formulary)] 1 tab PO DAILY Discharge Medication List Olmesartan Medoxomil [Benicar] 40 mg PO HS 11/06/18 [History] Hydrocodone/Acetaminophen [[place] 5-325] 1 tab PO Q4HR PRN 3 Days #18 tab 11/19/18 [Rx] Follow up Appointment(s)/Referral(s): Umm Ralph MD [STAFF PHYSICIAN] - 11/25/18 9:00 am Patient Instructions/Handouts: *Surgery [facility] - (Anesthesia) Endoscopy Discharge Instructions, Peptic Ulcer (ED), Hiatal Hernia (DC), Diverticulitis (DC), Jose-Reddy Drain Care (DC), Jose-Reddy Drain Care (GEN), Colectomy (GEN), Flexible Sigmoidoscopy (DC), Colorectal Polyps (GEN), Colectomy Diet (DC) Activity/Diet/Wound Care/Special Instructions: No lifting over 4 pounds in 4 weeks, December 14, 2018. No bathtub soaks. May shower. Keep record of MEÑO outputs daily. DO NOT START TUMERIC Low fiber diet. Soft foods. Avoid foods with seeds Discharge Disposition: HOME SELF-CARE <Umm Ralph - Last Filed: 11/19/18 17:12> Providers Date of admission: 11/12/18 09:14 Attending physician: Umm Ralph Consults: 11/12/18 14:13 Consult Physician Routine Consulting Provider: Al Parson Consult Reason/Comments: pre-op Do you want consulting provider notified?: Yes Primary care physician: Physician Nonstaff - Discharge Diagnosis(es) (1) Diverticulitis large intestine w/o perforation or abscess w/o bleeding Status: Acute (2) Neoplasm of sigmoid colon Status: Acute (3) Hypertensive heart disease Status: Acute (4) Anemia, iron deficiency Status: Acute (5) Paraesophageal hernia with obstruction but no gangrene Status: Acute (6) Obesity (BMI 30.0-34.9) Status: Acute (7) Large bowel obstruction Status: Acute (8) Colon polyp Status: Acute
== END 2018-11-19 14:28 | disposition home health service (06) | DRG 329 ==
LOC: ORWHC2ENDO 07:46 → 4SSUR 09:14
PROVIDERS: ADMIT Surgery Plastic and Reconstructive Surgery; ATTEND Surgery Plastic and Reconstructive Surgery
PROC: 0DB78ZX Excision of Stomach, Pylorus, Via Natural or Artificial Opening Endoscopic, Diagnostic (ICD-10-PCS; 2018-11-12)
PROC: 0DBN8ZX Excision of Sigmoid Colon, Via Natural or Artificial Opening Endoscopic, Diagnostic (ICD-10-PCS; 2018-11-12)
PROC: 0DB80ZZ Excision of Small Intestine, Open Approach (ICD-10-PCS; 2018-11-14)
PROC: 0DNN0ZZ Release Sigmoid Colon, Open Approach (ICD-10-PCS; 2018-11-14)
PROC: 0D9W00Z Drainage of Peritoneum with Drainage Device, Open Approach (ICD-10-PCS; 2018-11-14)
PROC: 0DJD8ZZ Inspection of Lower Intestinal Tract, Via Natural or Artificial Opening Endoscopic (ICD-10-PCS; 2018-11-14)
PROC: 8E0W0CZ Robotic Assisted Procedure of Trunk Region, Open Approach (ICD-10-PCS; 2018-11-14)
PROC: 3E1M38Z Irrigation of Peritoneal Cavity using Irrigating Substance, Percutaneous Approach (ICD-10-PCS; 2018-11-14)
PROC: 0DBN0ZZ Excision of Sigmoid Colon, Open Approach (ICD-10-PCS; principal; 2018-11-14 14:15)
DX: K57.40 Diverticulitis of both small and large intestine with perforation and abscess without bleeding (principal); K25.4 Chronic or unspecified gastric ulcer with hemorrhage; K63.2 Fistula of intestine; K22.10 Ulcer of esophagus without bleeding; K44.0 Diaphragmatic hernia with obstruction, without gangrene; D49.0 Neoplasm of unspecified behavior of digestive system; D50.9 Iron deficiency anemia, unspecified; E66.9 Obesity, unspecified; I11.9 Hypertensive heart disease without heart failure; K21.9 Gastro-esophageal reflux disease without esophagitis; K29.50 Unspecified chronic gastritis without bleeding; K29.80 Duodenitis without bleeding; K63.5 Polyp of colon; K66.0 Peritoneal adhesions (postprocedural) (postinfection); K76.0 Fatty (change of) liver, not elsewhere classified; M19.049 Primary osteoarthritis, unspecified hand; Z68.32 Body mass index [BMI] 32.0-32.9, adult; Z79.899 Other long term (current) drug therapy; Z85.828 Personal history of other malignant neoplasm of skin; Z90.710 Acquired absence of both cervix and uterus; Z88.0 Allergy status to penicillin; Z83.2 Family history of diseases of the blood and blood-forming organs and certain disorders involving the immune mechanism; Z86.010 Personal history of colon polyps
CPT/HCPCS: 43239; 45331; 45335; 74177; 80048; 80053; 82728; 83540; 83550; 83735; 85025; 85027; 85610; 86850; 86900; 86901; 88305; 88307; 93005; 93306; 94760

== ENCOUNTER → 2019-05-12 | Outpatient (CLI) | payer BC ==
[2019-05-12 14:31] LABS: HCT 42.2 % (34.0-46.0); HGB 13.9 gm/dL (11.4-16.0); MCH 27.1 pg (25.0-35.0); MCHC 32.8 g/dL (31.0-37.0); MCV 82.5 fL (80.0-100.0); Mean Platelet Volume 7.6; Platelet Count 328 k/uL (150-450); RBC 5.11 m/uL (3.80-5.40); RDW 13.7 % (11.5-15.5); WBC 7.9 k/uL (3.8-10.6)
[2019-05-12 18:20] LABS: % Iron Saturation 10.41 (12.00-45.00); African American GFR (CKD) 79.4 (60.0-200.0); Albumin 4.7 g/dL (3.80-4.90); Albumin/Globulin Ratio 1.96 (1.60-3.17); Anion Gap 9.9 mmol/L (4.00-12.00); BUN/Creat Ratio 14.44 Ratio (12.00-20.00); Calcium 10.2 mg/dL (8.7-10.3); Carbon Dioxide 28.1 mmol/L (21.6-31.8); Globulin 2.4 g/dL (1.6-3.3); Non-African American GFR(CKD) 68.5 (60.0-200.0); Potassium 4.1 mmol/L (3.5-5.5); Total Bilirubin 0.4 mg/dL (0.3-1.2); Total Protein 7.1 g/dL (6.2-8.2)
[2019-05-12 18:31] LABS: Ferritin 21.2 ng/mL (10.0-291.0)
== END | disposition home or self-care (01) ==
LOC: LABWHC1 13:52
PROVIDERS: ATTEND Surgery Plastic and Reconstructive Surgery
DX: K21.9 Gastro-esophageal reflux disease without esophagitis (principal); K44.9 Diaphragmatic hernia without obstruction or gangrene
CPT/HCPCS: 36415; 80053; 82728; 83540; 83550; 85027

== ENCOUNTER → 2019-05-12 | Outpatient (CLI) | payer BC ==
--- NOTE | 2019-05-12 14:01 | FL ---
EXAMINATION TYPE: FL barium swallow DATE OF EXAM: 05/12/2019 COMPARISON: CT abdomen pelvis 11/12/2018 HISTORY: Hiatal hernia TECHNIQUE: A single contrast UGI study is performed. FINDINGS: Slight contrast passes through the esophagus. Esophagus is tortuous. Tertiary contractions are evident distally. The gastroesophageal junction appears to be slightly above the diaphragm best v isualized early in the procedure. The patient was placed in the supine view there is filling of the h erniation of stomach in the retrocardiac region. IMPRESSIONS: 1. Hiatal hernia. Gastroesophageal junction appears above the diaphragm. 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
== END | disposition home or self-care (01) ==
LOC: RADFLMAIN 12:44
PROVIDERS: ATTEND Surgery Plastic and Reconstructive Surgery
DX: K44.9 Diaphragmatic hernia without obstruction or gangrene (principal); K45.8 Other specified abdominal hernia without obstruction or gangrene; J98.59 Other diseases of mediastinum, not elsewhere classified; Z88.0 Allergy status to penicillin
CPT/HCPCS: 74220

== ENCOUNTER 2019-07-20 11:04 | Inpatient (IN) | payer BC ==
[2019-07-16 15:25] VITALS: BMI 31.1
--- NOTE | 2019-07-19 20:33 | P.GSHP ---
History of Present Illness H&P Date: 07/20/19 CHIEF COMPLAINT: History of paraesophageal hiatal hernia. HISTORY OF PRESENT ILLNESS: Risa Hernandez is a 63-year-old female who comes in with symptomatic paraesophageal hiatal hernia including chronic anemia. She is taking iron pills. Also, hiatal hernias do run her family. She reports gastroesophageal reflux disease. She has a past history of a large sigmoid colectomy and fistulas over 7-8 months ago. She has healed very well from that. She reports her bowel movements are 3xs a day. She now presents for new assessment of her hiatal hernia. PAST MEDICAL HISTORY: Please see list. PAST SURGICAL HISTORY: Please see list. MEDICATIONS: Please see list. ALLERGIES: Please see list. SOCIAL HISTORY: No illicit drug use FAMILY HISTORY: No reports of Crohn disease or ulcerative colitis. REVIEW OF ORGAN SYSTEMS: Additionally reports: Gastrointestinal: History of large paraesophageal hiatal hernia. CONSTITUTIONAL: No fevers or chills. No recent weight loss. EYES: Denies any trouble with vision. No glasses. HEENT: No difficulties with hearing. No nosebleeds. No difficulty swallowing. RESPIRATORY: Denies pneumonia. Denies any troubles with breathing or dyspnea on exertion. CARDIOVASCULAR: Denies any chest pain, palpitations, or recent heart attacks. Has hypertension. GENITOURINARY: Denies any blood in urine or increased urinary frequency. NEUROLOGICAL: Denies any numbness or tingling along the distal extremities. No seizure disorders or headaches. MUSCULOSKELETAL: Denies any back pain, stiffness or joint arthritis. SKIN: No current skin cancer. No rash. PSYCHIATRIC: Denies current depression or suicidal thoughts. ENDOCRINE: Denies current thyroid disorders. Denies any blood sugar glucose intolerance. HEME/LYMPHATIC: Denies any lumps and bumps around the neck. No recent deep venous thrombosis. ALLERGY/IMMUNOLOGY: No immunoglobulin therapy. No immune deficiencies. BREAST: Denies current breast lumps, pain or nipple discharge. PHYSICAL EXAM: Patient is a 63-year-old female. CONSTITUTIONAL: Well developed and in no acute distress. Vitals reviewed. EYES: Conjuctivae without sclera icterus. Pupils are equally round and reactive to light. Extraocular movements grossly intact. HEAD, EARS, NOSE, THROAT: Moist buccal mucosa. Head is atraumatic, normocephalic. Hears conversational speech. No nasal drainage. Good dentition.NECK: Supple. No JV distention. No thyroidomegaly. RESPIRATORY: Non-labored respirations and equal bilateral excursions. No gross wheezes. CARDIOVASCULAR: Regular rate and rhythm. Extremities without moderate edema. Palpable 2+ radial pulses. ABDOMEN: No hepatomegaly. Soft. Non-tender. Nondistended. Well healed midline incision. LYMPH: No neck lymphadenopathy. No axillary lymphadenopathy. MUSCULOSKELETAL: Nail and fingers with good capillary refill. SKIN: Warm and well perfused with good skin turgor. NEUROLOGIC: Cranial nerves I through XII grossly intact. Sensation upper and extremities intact. No focal or lateralizing signs. PSYCH: Appropriate affect. Alert and oriented to person, place and time. Displays appropriate insight. 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 ASSESSMENT: 1. Large paraesophageal hiatal hernia. PLAN: 1. I have recommended an esophagram to elucidate the severity of her paraesophageal hiatal hernia at this time. 2. A Wendy diet was reviewed. 3. Benefits and risks of the procedure were also described. 4. Recovery of at least 4 weeks was also described. 5. Recommended CMP including iron panel. 6. While inpatient, she will need iron infusion for chronic iron deficiency anemia. 7. Given the size of the paraesophageal hiatal hernia, she is at elevated risk. 8. Robotic-assisted laparoscopic hiatal hernia repair described Past Medical History Past Medical History: Cancer, Hypertension Additional Past Medical History / Comment(s): anemia, skin cancer basal cell, maurice ahumada, HIATAL HERNIA History of Any Multi-Drug Resistant Organisms: None Reported Past Surgical History: Hysterectomy, Tonsillectomy Additional Past Surgical History / Comment(s): basal cell skin cancer removed. EGD, COLONOSCOPY. BOWEL RESECTION-11/2018 Past Anesthesia/Blood Transfusion Reactions: Previous Problems w/ Anesthesia Additional Past Anesthesia/Blood Transfusion Reaction / Comment(s): takes longer to come out of anesthesia Smoking Status: Never smoker - Past Family History Mother Family Medical History: Deep Vein Thrombosis (DVT), Pulmonary Embolus Medications and Allergies Home Medications Medication Instructions Recorded Confirmed Type Olmesartan Medoxomil [Benicar] 40 mg PO HS 11/06/18 07/16/19 History Allergies Allergy/AdvReac Type Severity Reaction Status Date / Time Penicillins Allergy Anaphylaxis Verified 07/16/19 15:17
[~2019-07-20 11:04] MED LIST changes: +CHLORHEXIDINE GLUCONATE 15 ML CUP MUCOUS MEM ONE; +CLINDAMYCIN 900 MG in DEXTROSE 5% IN WATER 50 ML IVPB ONE; +DEXAMETHASONE SOD PHOSPHATE 10 MG/ML 1 ML VIAL IV ONE; +DEXAMETHASONE SOD PHOSPHATE 4 MG/ML 1 ML VIAL IV STA; +HEPARIN SODIUM,PORCINE 5,000 UNIT/ML 1 ML VIAL SQ ONE; +HYDROmorphone 0.5 MG/0.5 ML SYRINGE IVP PRN; -LACTATED RINGERS 1,000 ML IV SCH; +LEVOFLOXACIN 500MG-D5W PMX 500 MG in DEXTROSE/WATER 1 100ML.BAG IVPB ONE; +LIDOCAINE 1% (10MG/ML) FOR IV START INTRADERMA PRN; +ONDANSETRON 4 MG/2 ML VIAL IVP ONE; +PANTOPRAZOLE 40 MG/10 ML VIAL IV STA; +SCOPOLAMINE 1.5MG/72HR PATCH TRANSDERM STA
[2019-07-20] MEDS: LACTATED RINGERS 1,000 ML IV SCH (12:12)
[2019-07-20 12:18] LABS: Basophils # (A) 0.1 k/uL (0-0.2); Basophils % (A) 1 %; Eosinophils % (A) 1 %; HCT 43.3 % (34.0-46.0); HGB 14.2 gm/dL (11.4-16.0); Lymphocytes # (A) 1.1 k/uL (1.0-4.8); Lymphocytes % (A) 18 %; MCHC 32.7 g/dL (31.0-37.0); MCV 82.7 fL (80.0-100.0); Mean Platelet Volume 7.8; Monocytes # (A) 0.4 k/uL (0-1.0); Monocytes % (A) 6 %; Neutrophils # (A) 4.7 k/uL (1.3-7.7); Neutrophils % (A) 72 %; Platelet Count 281 k/uL (150-450); RBC 5.24 m/uL (3.80-5.40); RDW 14.4 % (11.5-15.5); WBC 6.4 k/uL (3.8-10.6)
[2019-07-20 12:26] LABS: ALT 21 U/L (4-34); AST 24 U/L (14-36); African American GFR (CKD) >90 (>60 ml/min/1.73 sqM); Albumin 4.5 g/dL (3.5-5.0); Alkaline Phosphatase 52 U/L (38-126); Anion Gap 12 mmol/L; Blood Urea Nitrogen 17 mg/dL (7-17); Calcium 9.8 mg/dL (8.4-10.2); Carbon Dioxide 21 mmol/L (22-30); Chloride 105 mmol/L (98-107); Glucose 91 mg/dL (74-99); Non-African American GFR(CKD) >90 (>60 ml/min/1.73 sqM); Potassium 4.7 mmol/L (3.5-5.1); Sodium 138 mmol/L (137-145); Total Bilirubin 0.6 mg/dL (0.2-1.3); Total Protein 7.6 g/dL (6.3-8.2)
[2019-07-20] MEDS ORDERED: ROCURONIUM BROMIDE 10 MG/ML 5 ML VIAL IV ONE (13:31)
[2019-07-20] MEDS ORDERED: ONDANSETRON 4 MG/2 ML VIAL ONE (13:31)
[2019-07-20] MEDS ORDERED: NEOSTIGMINE 1 MG/ML 10 ML VIAL ONE (13:31)
[2019-07-20] MEDS ORDERED: HYDROmorphone (PF) 1 MG/ML ONE (13:31)
[2019-07-20] MEDS ORDERED: GLYCOPYRROLATE 0.2 MG/ML 2 ML VIAL ONE (13:31)
[2019-07-20] MEDS ORDERED: LIDOCAINE 1% INJ 10MG/ML (20 ML MDV) ONE (13:31)
[2019-07-20] MEDS ORDERED: MIDAZOLAM 2 MG/2 ML VIAL ONE (13:31)
[2019-07-20] MEDS ORDERED: fentaNYL (PF) 50 MCG/ML 2 ML AMP ONE (13:31)
[2019-07-20] MEDS ORDERED: SUCCINYLCHOLINE CHLORIDE 100 MG/5 ML SYR IV ONE (13:31)
[2019-07-20] MEDS ORDERED: PROPOFOL 10 MG/ML 20 ML VIAL IV ONE (13:31)
[2019-07-20] MEDS ORDERED: BUPIVACAIN-EPI 0.25%-1:200,000 30 ML VIAL SQ ONE (13:52)
[2019-07-20] MEDS ORDERED: LACTATED RINGERS 1,000 ML IV ONE (14:39)
[2019-07-20] MEDS ORDERED: ONDANSETRON 4 MG/2 ML VIAL IVP PRN (16:04)
[2019-07-20] MEDS ORDERED: NALOXONE 0.4 MG/ML 1 ML VIAL IV PRN (16:04)
[2019-07-20] MEDS ORDERED: HYDROmorphone 1 MG/ML 1 ML SYRINGE IVP PRN (16:04)
--- NOTE | 2019-07-20 16:22 | P.OP ---
Date of Procedure: 07/20/19 Description of Procedure: SURGEON: PAYAL GAVIRIA MD PREOPERATIVE DIAGNOSES: 1. Symptomatic paraesophageal diaphragmatic hiatal hernia. 2. Gastroesophageal reflux disease. 3. History of iron deficiency anemia 4. Hypertensive heart disease 5. Obesity, BMI 31.1. 6. 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 Symptomatic paraesophageal diaphragmatic hiatal hernia, incarcerated 2. Gastroesophageal reflux disease. 3. History of iron deficiency anemia 4. Hypertensive heart disease 5. Obesity, BMI 31.1. 6. 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 Severe peritoneal intra-abdominal adhesions lower abdomen OPERATION: 1. Robotic-assisted da Raghavendra Xi laparoscopic repair of incarcerated paraesophageal hiatal hernia, 9 x 6 cm, with [place] Biopatch A 8 x 8 cm. 2. Intraoperative esophagogastroduodenoscopy ANESTHESIA: General with local anesthetic. ESTIMATED BLOOD LOSS: 5 mL SPECIMENS REMOVED: None COMPLICATIONS: None. Condition: stable Disposition: floor FINDINGS: 1. Midline incarcerated paraesophageal hiatal hernia 9 x 6 cm 2. Intraoperative upper endoscopy confirms complete closure of hiatal hernia from Hill grade 4 to Hill grade 1 3. Severe peritoneal lower abdominal adhesions of omentum to the abdominal wall undisturbed 4. Large incarcerated paraesophageal sac reduced and divided from hiatus 5. Squamocolumnar junction at 35 cm from the incisors including hiatus INDICATIONS: The patient is a 63-year-old female who presents with regurgitation, gastroesophageal reflux disease poorly controlled despite medications, and a symptomatic diaphragmatic hiatal hernia. Preoperative workup including upper endoscopy demonstrated a Hill grade 4 lower esophageal valve. She completed an esophageal manometry. Given the severity of symptoms, she had elected for surgical intervention. Benefits and risks including bleeding, infection, recurrence, dysphagia, injury to the lung, need for further surgery was described at length. Informed consent was obtained. DESCRIPTION: The patient was brought into the operating room and placed in supine position. Preoperatively she had received heparin subcutaneously for DVT prophylaxis. After general induction, the abdomen was prepped and draped in standard sterile fashion. The patient had previously voided prior to coming to the operating room. Ioban draping was placed along the abdomen. A timeout protocol was confirmed with the surgical team, for which the patient's name, procedure to be performed including DVT prophylaxis with bilateral SCDs, and preoperative antibiotics were also confirmed. A robotic da Raghavendra Xi system was prepped and primed. At 12 cm from the xiphoid to just below the umbilicus, proposed port sites were marked with indelible marker along the left axillary line, left mid-clavicular line with each ports were marked 10 cm from each other. A 5 mm 0 degrees laparoscopic trocar entry was performed along the left upper quadrant. Initial entry was completely obscured. A separate subcostal left upper quadrant incision was made for laparoscopic trocar entry. The abdomen was insufflated to 15 mmHg pressure was tolerated well. Diagnostic laparoscopy demonstrated no injury to bowel, viscera, or mesentery. No injury had occurred to the small bowel or viscera. Severe intra-abdominal adhesions of the mid to lower abdomen identified requiring adjustment of all ports to 9 cm from the xiphoid. Next, one 8 mm robotic port was placed along the right upper abdomen. An 8-mm port was were placed along the left lateral abdominal wall. The camera 8-mm port was maintained along the epigastrium via the hernia defect. Another 12 mm port was placed along the left upper abdominal wall after exchanging the 5 mm port. Please note that the ports were placed at least 20 cm away from the target anatomy. Care was taken to check that each robotic arm were safely away from collision with the bed or the patient. Secondary to the placement of the trochars, Antonio medium size liver retractor was avoided during the case. The use of a robotic arm was used as a liver retractor instead. The patient was repositioned in reverse Trendelenburg position at 16-degrees after lowering the bed. The robot was docked above the right side of the patient. Using a grasper for arm 3, a grasper for arm 1, including vessel sealer for arm 2, the robotic system was docked and primed as described. Instruments were interchanged by the retail event and sales assistant. I had sat at the console. At least 40-60% of incarceration of pole of the stomach was identified into the mediastinum. The gastrohepatic ligament was cleaved using a vessel sealer. The left gastric vein was clipped with plastic clip appliers and divided using a vessel sealer. Next, the phrenoesophageal ligament was mobilized and the distal esophagus was mobilized circumferentially. The left and right crura was identified. Circumferentially, the hernia sac was excised and brought into the peritoneal cavity. Moderate dissection into the mediastinum was performed to release the esophagus into the abdominal cavity. The paraesophageal hiatal hernia sac was also incised and divided from the esophagus. Care was taken to avoid any gastrotomy. The measured defect was consistent with 9 cm axial length and 6 cm in width. After dissection, the distal esophagus of 2 cm was brought into the abdominal cavity. Prior to closure of the hiatus, I went to the head of the bed to perform intraoperative esophagogastroscopy with placement of the scope into the stomach. Once the hiatus and crura was dissected, 2-0 VLOC suture was placed to reapproximate the diaphragmatic hiatus posteriorly. To buttress the repair, a [place] Biopatch A was prepared along the back table and cut in half of a bautista-hole fashion as to reinforce the repair as an underlay. The mesh was placed along the crural repair and tagged using horizontal mattress sutures using 2-0 VLOC. I went to the head of the bed to perform intraoperative esophago gastroduodenoscopy. An Olympus gastroscope was passed through posterior oropharynx. Retroflexion of the scope confirmed a Hill grade 1 lower esophageal valve. The stomach had been desufflated. No evidence of leaks were found of the esophagus or stomach. The squamocolumnar junction and hiatus was placed at 35 cm from the incisors. The GI tract with desufflated This concluded the endoscopic portion of the case. The robot was undocked from the patient. I re-scrubbed into the case. All instruments and pneumoperitoneum and specimens were evacuated from the abdominal cavity. Incisions were reapproximated using 4-0 Monocryl in an interrupted subcuticular fashion. Liquid glue was applied to the skin. Local anesthetic was infiltrated in all wounds for postop analgesia. Multiple intra-abdominal films were obtained. At the end of the procedure, needle, sponge, and instrument count was verified correct by the surgical attendant. The patient had tolerated the procedure well and was taken to the postanesthesia unit in stable condition. Intraoperative films were reviewed with the patient's family who was pleased with the level of care. Console time 75 minutes.
[2019-07-20] MEDS ORDERED: KETOROLAC 30 MG/ML 1 ML VIAL IVP ONE (16:46)
[2019-07-20] MEDS: KETOROLAC 30 MG/ML 1 ML VIAL IVP SCH (17:42)
[2019-07-20] MEDS: ACETAMINOPHEN ORAL SUSP (PEDS) 3,840 MG/120 ML BOTTLE PO SCH (17:56)
[2019-07-20] MEDS: DEXAMETHASONE SOD PHOSPHATE 4 MG/ML 1 ML VIAL IV SCH (17:59)
[2019-07-20] MEDS: METOCLOPRAMIDE 5 MG/ML 2 ML VIAL IVP SCH (17:59)
[2019-07-20] MEDS: SIMETHICONE 40 MG/0.6 ML DROPS 2,000 MG/30 ML BOTTLE PO SCH (18:00)
[2019-07-20] MEDS: HYOSCYAMINE ORAL DROPS 1.875 MG/15 ML BOTTLE PO SCH (18:04)
[2019-07-20] MEDS: D5-0.45% NACL WITH KCL 20MEQ/L 1,000 ML IV SCH (19:04)
[2019-07-20] MEDS ORDERED: LOSARTAN 50 MG TAB PO SCH (21:00)
[2019-07-20] MEDS: CLINDAMYCIN 900 MG in DEXTROSE 5% IN WATER 50 ML IVPB SCH ×2 (21:59)
[2019-07-21] MEDS: SIMETHICONE 40 MG/0.6 ML DROPS 2,000 MG/30 ML BOTTLE PO SCH ×3 (00:19→11:45)
[2019-07-21] MEDS: ACETAMINOPHEN ORAL SUSP (PEDS) 3,840 MG/120 ML BOTTLE PO SCH ×3 (00:19→11:42)
[2019-07-21] MEDS: HYOSCYAMINE ORAL DROPS 1.875 MG/15 ML BOTTLE PO SCH ×3 (00:19→11:44)
[2019-07-21] MEDS: METOCLOPRAMIDE 5 MG/ML 2 ML VIAL IVP SCH ×3 (00:19→11:50)
[2019-07-21] MEDS: DEXAMETHASONE SOD PHOSPHATE 4 MG/ML 1 ML VIAL IV SCH ×3 (00:20→12:01)
[2019-07-21] MEDS: KETOROLAC 30 MG/ML 1 ML VIAL IVP SCH ×3 (00:20→11:47)
[2019-07-21] MEDS: D5-0.45% NACL WITH KCL 20MEQ/L 1,000 ML IV SCH (00:20)
[2019-07-21 00:40] VITALS: RESP 18
[2019-07-21 05:57] LABS: Basophils % (A) 0 %; Eosinophils # (A) 0.1 k/uL (0-0.7); Eosinophils % (A) 1 %; HCT 39.1 % (34.0-46.0); HGB 12.7 gm/dL (11.4-16.0); Lymphocytes # (A) 0.7 k/uL (1.0-4.8); Lymphocytes % (A) 7 %; MCH 27.4 pg (25.0-35.0); MCHC 32.3 g/dL (31.0-37.0); MCV 84.9 fL (80.0-100.0); Mean Platelet Volume 8.5; Monocytes # (A) 0.3 k/uL (0-1.0); Monocytes % (A) 3 %; Neutrophils # (A) 8.3 k/uL (1.3-7.7); Neutrophils % (A) 89 %; Platelet Count 282 k/uL (150-450); RBC 4.61 m/uL (3.80-5.40); RDW 14.4 % (11.5-15.5); WBC 9.3 k/uL (3.8-10.6)
[2019-07-21 06:09] LABS: Calcium 9.3 mg/dL (8.4-10.2); Phosphorus 2.8 mg/dL (2.5-4.5); Potassium 5.5 mmol/L (3.5-5.1)
[2019-07-21] MEDS: LACTATED RINGERS 1,000 ML IV SCH (06:33)
[2019-07-21] MEDS: CLINDAMYCIN 900 MG in DEXTROSE 5% IN WATER 50 ML IVPB SCH ×2 (06:34)
--- NOTE | 2019-07-21 08:14 | FL ---
EXAMINATION TYPE: FL esophagus cervic/pharynx DATE OF EXAM: 07/21/2019 LIMITED UGI-ESOPHAGRAM: CLINICAL HISTORY: Large hiatal hernia status post reduction and [place]ill fundoplication surgery yester day. TECHNIQUE: Limited esophagram is performed utilizing 25 oz of Isovue-370. A total of 12 seconds of f luoroscopic time was utilized during procedure. 26 spot images saved to PACS. COMPARISON: Barium swallow study May 12, 2019. FINDINGS: The patient swallowed contrast without difficulty or delay. Esophageal dysmotility with ab normal secondary and tertiary contractions noted. There is good flow of contrast along the diaphragma tic hiatus into the stomach, there is no evidence of contrast extravasation to suggest leak. No persi stent hiatal hernia is seen after surgical reduction. Patient remains asymptomatic. IMPRESSION: No evidence of leak or significant obstruction status post hiatal hernia reduction and Ni ssan fundoplication surgery yesterday.
[2019-07-21 08:34] VITALS: BP 119/73; PULSE 77; TEMP 98.5
[2019-07-21] MEDS ORDERED: PANTOPRAZOLE 40 MG/10 ML VIAL IV SCH (09:00)
[2019-07-21] MEDS ORDERED: ENOXAPARIN 40 MG/0.4 ML SYRINGE SQ SCH (09:00)
--- NOTE | 2019-07-21 13:34 | P.DS ---
Providers Date of admission: 07/20/19 16:04 Expected date of discharge: 07/21/19 Attending physician: Umm Ralph Primary care physician: Physician Nonstaff - Discharge Diagnosis(es) (1) Hypertensive heart disease Current Visit: No Status: Acute (2) Paraesophageal hernia with obstruction but no gangrene Current Visit: No Status: Acute Hospital Course: POSTOPERATIVE DIAGNOSES: 1. Symptomatic paraesophageal diaphragmatic hiatal hernia, incarcerated 2. Gastroesophageal reflux disease. 3. History of iron deficiency anemia 4. Hypertensive heart disease 5. Obesity, BMI 31.1. 6. 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 Severe peritoneal intra-abdominal adhesions lower abdomen INDICATIONS: The patient is a 63-year-old female who presents with symptomatic large paraesophageal diaphragmatic hiatal hernia which is incarcerated. She underwent elective robotic diaphragmatic hiatal hernia repair with findings of incarcerated over 40to 60% of her stomach in the mediastinum. She reported symptomatic dyspnea on exertion preoperatively that improved after surgery. Postoperatively, esophagram demonstrates no leaks or obstruction. Patient reported clinical improvement of her breathing. No reports dysphagia. Post Wendy reviewed including full liquid diet for 2 weeks. Patient to follow-up in the office in 1 week. No lifting over 4 pounds 4 weeks stressed through August 19. CHIEF COMPLAINT: Diaphragmatic hernia, incarcerated HISTORY OF PRESENT ILLNESS: The patient is a 63 year-old female postop day 1 status post diaphragmatic hiatal hernia.. She is tolerating diet. No further ports of atypical chest pain. She only complains of incisional pain. ROS: No reports of nausea and vomiting. No fevers or chills. No new chest pain. No productive sputum PHYSICAL EXAM: VITAL SIGNS: Reviewed CONSTITUTIONAL: Well developed and in no acute distress. EYES: Conjuctivae without sclera icterus. Extraocular movements grossly intact. HEAD, EARS, NOSE, THROAT: Moist buccal mucosa. Head is atraumatic, normoce phalic. Hears conversational speech. No nasal drainage. NECK: Supple. No thyroidomegaly. RESPIRATORY: Non-labored respirations and equal bilateral excursions. CARDIOVASCULAR: Palpable 2+ radial pulses. Regular rate. Regular rhythm. ABDOMEN: Incisions clean dry and intact. Soft. No peritonitis. MUSCULOSKELETAL: No gross deformity of the lower extremities noted. No clubbing. No cyanosis. SKIN: Good skin turgor. Well perfused. NEUROLOGIC: Cranial nerves II through XII grossly intact. No focal or lateralizing signs. PSYCH: Appropriate affect. Alert and oriented to person, place and time. CLINICAL LABS: White blood cell count normal ASSESSMENT: 1. Incarcerated midline diaphragmatic hiatal hernia, paraesophageal type PLAN: 1. Discontinue IV fluids 2. Post discharge chart reviewed 3. Medical reconciliation performed Vital Signs Temp 98.5 F 07/21/19 08:00 Pulse 77 07/21/19 08:00 Resp 18 07/21/19 08:00 BP 119/73 07/21/19 08:00 Pulse Ox 94 L 07/21/19 08:00 Intake & Output 07/20/19 07/21/19 07/21/19 18:59 06:59 18:59 Intake Total 1876 1690 Output Total 125 700 Balance 1751 990 Weight 77.111 kg 77.111 kg Intake: IV 1756 Intake, IV Titration 1300 Amount Clindamycin 900 mg In 50 Dextrose 5% in Water 50 ml @ 50 mls/hr IVPB Q8H MATTI Rx#:[id number] D5-0.45% NaCl with KCl 1250 20Meq/l 1,000 ml @ 125 mls/hr IV .Q8H MATTI Rx#: [id number] Oral 120 390 Output: Urine 120 700 Estimated Blood Loss 5 Other: # Voids 1 Laboratory Last Values WBC 9.3 k/uL (3.8-10.6) 07/21/19 05:42 RBC 4.61 m/uL (3.80-5.40) 07/21/19 05:42 Hgb 12.7 gm/dL (11.4-16.0) 07/21/19 05:42 Hct 39.1 % (34.0-46.0) 07/21/19 05:42 MCV 84.9 fL (80.0-100.0) 07/21/19 05:42 MCH 27.4 pg (25.0-35.0) 07/21/19 05:42 MCHC 32.3 g/dL (31.0-37.0) 07/21/19 05:42 RDW 14.4 % (11.5-15.5) 07/21/19 05:42 Plt Count 282 k/uL (150-450) 07/21/19 05:42 Neutrophils % 89 % 07/21/19 05:42 Lymphocytes % 7 % 07/21/19 05:42 Monocytes % 3 % 07/21/19 05:42 Eosinophils % 1 % 07/21/19 05:42 Basophils % 0 % 07/21/19 05:42 Neutrophils # 8.3 k/uL (1.3-7.7) H 07/21/19 05:42 Lymphocytes # 0.7 k/uL (1.0-4.8) L 07/21/19 05:42 Monocytes # 0.3 k/uL (0-1.0) 07/21/19 05:42 Eosinophils # 0.1 k/uL (0-0.7) 07/21/19 05:42 Basophils # 0.0 k/uL (0-0.2) 07/21/19 05:42 Sodium 135 mmol/L (137-145) L 07/21/19 05:41 Potassium 5.5 mmol/L (3.5-5.1) H 07/21/19 05:41 Chloride 104 mmol/L (98-107) 07/21/19 05:41 Carbon Dioxide 25 mmol/L (22-30) 07/21/19 05:41 Anion Gap 6 mmol/L 07/21/19 05:41 BUN 21 mg/dL (7-17) H 07/21/19 05:41 Creatinine 0.83 mg/dL (0.52-1.04) 07/21/19 05:41 Est GFR (CKD-EPI)AfAm 88 (>60 ml/min/1.73 sqM) 07/21/19 05:41 Est GFR (CKD-EPI)NonAf 76 (>60 ml/min/1.73 sqM) 07/21/19 05:41 Glucose 91 mg/dL (74-99) 07/20/19 12:03 Calcium 9.3 mg/dL (8.4-10.2) 07/21/19 05:41 Phosphorus 2.8 mg/dL (2.5-4.5) 07/21/19 05:41 Magnesium 2.0 mg/dL (1.6-2.3) 07/21/19 05:41 Total Bilirubin 0.6 mg/dL (0.2-1.3) 07/20/19 12:03 AST 24 U/L (14-36) 07/20/19 12:03 ALT 21 U/L (4-34) 07/20/19 12:03 Alkaline Phosphatase 52 U/L (38-126) 07/20/19 12:03 Total Protein 7.6 g/dL (6.3-8.2) 07/20/19 12:03 Albumin 4.5 g/dL (3.5-5.0) 07/20/19 12:03 Coronavirus (PCR) Not Detected (Not Detectd) 07/20/19 11:15 Pertinent Studies: Esophagram negative for leak or obstruction. Findings consistent with reduction of large incarcerated midline diaphragmatic hiatal hernia Procedures: OPERATION: 1. Robotic-assisted da Raghavendra Xi laparoscopic repair of incarcerated paraesophageal hiatal hernia, 9 x 6 cm, with [place] Biopatch A 8 x 8 cm. 2. Intraoperative esophagogastroduodenoscopy ANESTHESIA: General with local anesthetic. ESTIMATED BLOOD LOSS: 5 mL SPECIMENS REMOVED: None COMPLICATIONS: None. Condition: stable Disposition: floor FINDINGS: 1. Midline incarcerated paraesophageal hiatal hernia 9 x 6 cm 2. Intraoperative upper endoscopy confirms complete closure of hiatal hernia from Hill grade 4 to Hill grade 1 3. Severe peritoneal lower abdominal adhesions of omentum to the abdominal wall undisturbed 4. Large incarcerated paraesophageal sac reduced and divided from hiatus 5. Squamocolumnar junction at 35 cm from the incisors including hiatus Patient Condition at Discharge: Good Plan - Discharge Summary Discharge Rx Participant: Yes New Discharge Prescriptions: New Bisacodyl [Dulcolax] 5 mg PO DAILY PRN #10 tablet. PRN Reason: Constipation Simethicone 40 mg/0.6 ml Drops [Mylicon Drops] 40 mg PO PCHS PRN #30 ml PRN Reason: Gas Omeprazole [PriLOSEC] 40 mg PO DAILY #30 capsule. Ondansetron Odt [Zofran Odt] 4 mg PO Q8HR PRN #9 tab PRN Reason: Nausea Continue Olmesartan Medoxomil [Benicar] 40 mg PO HS Discharge Medication List Olmesartan Medoxomil [Benicar] 40 mg PO HS 11/06/18 [History] Bisacodyl [Dulcolax] 5 mg PO DAILY PRN #10 tablet. 07/20/19 [Rx] Omeprazole [PriLOSEC] 40 mg PO DAILY #30 capsule. 07/20/19 [Rx] Ondansetron Odt [Zofran Odt] 4 mg PO Q8HR PRN #9 tab 07/20/19 [Rx] Simethicone 40 mg/0.6 ml Drops [Mylicon Drops] 40 mg PO PCHS PRN #30 ml 07/20/19 [Rx] Follow up Appointment(s)/Referral(s): Umm Ralph MD [STAFF PHYSICIAN] - 07/28/19 (07-28-2019Saturday 4:40PM) Patient Instructions/Handouts: Hiatal Hernia (GEN), Laparoscopic Hiatal Hernia Repair (DC) Activity/Diet/Wound Care/Special Instructions: Liquid diet only. No carbonated beverages. No straws. No lifting over 4 pounds in 4 weeks, August 19. May shower. No bath tub soaks for 2 weeks until Mat 25. May take ifqt-cut-hitrrdt Tylenol or Aleve for pain. Do not remove scopolamine patch for 3 days, if present
[2019-07-23] MEDS ORDERED: SCOPOLAMINE 1.5MG/72HR PATCH TRANSDERM SCH (12:00)
== END 2019-07-21 14:00 | disposition home or self-care (01) | DRG 328 ==
LOC: OR 11:04 → 6PED 16:04
PROVIDERS: ADMIT Surgery Plastic and Reconstructive Surgery; ATTEND Surgery Plastic and Reconstructive Surgery
PROC: 0BUT4JZ Supplement Diaphragm with Synthetic Substitute, Percutaneous Endoscopic Approach (ICD-10-PCS; principal; 2019-07-20 13:10)
PROC: 8E0W4CZ Robotic Assisted Procedure of Trunk Region, Percutaneous Endoscopic Approach (ICD-10-PCS; principal; 2019-07-20 13:10)
PROC: 0DJ08ZZ Inspection of Upper Intestinal Tract, Via Natural or Artificial Opening Endoscopic (ICD-10-PCS; principal; 2019-07-20 13:10)
DX: K44.0 Diaphragmatic hernia with obstruction, without gangrene (principal); K66.0 Peritoneal adhesions (postprocedural) (postinfection); D50.9 Iron deficiency anemia, unspecified; E66.9 Obesity, unspecified; I11.9 Hypertensive heart disease without heart failure; K21.9 Gastro-esophageal reflux disease without esophagitis; Z68.31 Body mass index [BMI] 31.0-31.9, adult; Z85.828 Personal history of other malignant neoplasm of skin; Z90.710 Acquired absence of both cervix and uterus; Z90.49 Acquired absence of other specified parts of digestive tract; Z11.59 Encounter for screening for other viral diseases; Z83.2 Family history of diseases of the blood and blood-forming organs and certain disorders involving the immune mechanism; Z88.0 Allergy status to penicillin
CPT/HCPCS: 74210; 80051; 80053; 82310; 82565; 83735; 84100; 84520; 85025; 87635

== ENCOUNTER 2022-01-17 07:41 | Day surgery (SDC) | payer MEDICARE, BC ==
[2022-01-15 10:16] VITALS: BMI 34.7
--- NOTE | 2022-01-17 07:34 | P.GSHP ---
History of Present Illness H&P Date: 01/17/22 CHIEF COMPLAINT: Colon screen HISTORY OF PRESENT ILLNESS: The patient is a 66-year-old female who presents for colon screen. Lower endoscopy was offered for further evaluation and management. PAST MEDICAL HISTORY: Please see list. PAST SURGICAL HISTORY: Please see list. MEDICATIONS: Please see list. ALLERGIES: Please see list. SOCIAL HISTORY: No illicit drug use FAMILY HISTORY: No reports of Crohn disease or ulcerative colitis. REVIEW OF ORGAN SYSTEMS: CONSTITUTIONAL: No reports of fevers or chills. PHYSICAL EXAM: VITAL SIGNS: Stable GENERAL: Well-developed pleasant in no acute distress. HEENT: No scleral icterus. Extraocular movements grossly intact. Moist buccal mucosa. NECK: Supple without lymphadenopathy. CHEST: Unlabored respirations. Equal bilateral excursions. CARDIOVASCULAR: Regular rate and rhythm. Distal 2+ pulses. ABDOMEN: Soft, nontender, nondistended. MUSCULOSKELETAL: No clubbing, cyanosis, or edema. ASSESSMENT: 1. Colon screen. PLAN: 1. Recommend proceeding with a lower endoscopy Past Medical History Past Medical History: Cancer, Hypertension Additional Past Medical History / Comment(s): anemia, skin cancer basal cell, maurice ahumada, HIATAL HERNIA History of Any Multi-Drug Resistant Organisms: None Reported Past Surgical History: Bowel Resection, Hysterectomy, Tonsillectomy Additional Past Surgical History / Comment(s): basal cell skin cancer removed. EGD, COLONOSCOPY. BOWEL RESECTION-11/2018 Past Anesthesia/Blood Transfusion Reactions: Previous Problems w/ Anesthesia Additional Past Anesthesia/Blood Transfusion Reaction / Comment(s): takes longer to come out of anesthesia Smoking Status: Never smoker - Past Family History Mother Family Medical History: Deep Vein Thrombosis (DVT), Pulmonary Embolus Medications and Allergies Home Medications Medication Instructions Recorded Confirmed Type Olmesartan [Benicar] 40 mg PO DAILY 01/15/22 01/15/22 History amLODIPine [Norvasc] 5 mg PO DAILY 01/15/22 01/15/22 History Allergies Allergy/AdvReac Type Severity Reaction Status Date / Time lactose Allergy Diarrhea Verified 01/15/22 10:05 Penicillins Allergy Anaphylaxis Verified 01/15/22 10:05
[~2022-01-17 07:41] MED LIST changes: -CHLORHEXIDINE GLUCONATE 15 ML CUP MUCOUS MEM ONE; -CLINDAMYCIN 900 MG in DEXTROSE 5% IN WATER 50 ML IVPB ONE; -DEXAMETHASONE SOD PHOSPHATE 10 MG/ML 1 ML VIAL IV ONE; -DEXAMETHASONE SOD PHOSPHATE 4 MG/ML 1 ML VIAL IV STA; -HEPARIN SODIUM,PORCINE 5,000 UNIT/ML 1 ML VIAL SQ ONE; -HYDROmorphone 0.5 MG/0.5 ML SYRINGE IVP PRN; +LACTATED RINGERS 1,000 ML IV SCH; -LEVOFLOXACIN 500MG-D5W PMX 500 MG in DEXTROSE/WATER 1 100ML.BAG IVPB ONE; -LIDOCAINE 1% (10MG/ML) FOR IV START INTRADERMA PRN; -ONDANSETRON 4 MG/2 ML VIAL IVP ONE; +ONDANSETRON 4 MG/2 ML VIAL IVP PRN; -PANTOPRAZOLE 40 MG/10 ML VIAL IV STA; -SCOPOLAMINE 1.5MG/72HR PATCH TRANSDERM STA
[2022-01-17 08:25] VITALS: TEMP 97.7
[2022-01-17] MEDS ORDERED: LIDOCAINE 2% INJ 20 MG/ML (2 ML VIAL) ONE (08:51)
[2022-01-17] MEDS ORDERED: PROPOFOL 10 MG/ML 20 ML VIAL IV ONE (08:51)
--- NOTE | 2022-01-17 08:55 | P.HPADDEND ---
H&P Addendum H&P Addendum Date: 01/17/22 Patient comes in with prior paraesophageal hiatal hernia now with recurrent symptoms. She reports reflux disease. Do recommend upper endoscopy. Benefits described. Patient agreed to proceed with upper endoscopy in addition to lower endoscopy.
[2022-01-17 09:28] VITALS: RESP 14
[2022-01-17 09:44] VITALS: BP 129/83; PULSE 67
--- NOTE | 2022-01-17 09:54 | P.PCN ---
Date of Procedure: 01/17/22 Description of Procedure: PREOPERATIVE DIAGNOSIS: Personal history of colon polyps History of sigmoid colectomy for diverticulitis with fistula Colonoscopy screening POSTOPERATIVE DIAGNOSIS: Pandiverticulosis Transverse colon adenoma Cecum colon adenoma OPERATION: Colonoscopy to the ileocecal valve and appendiceal orifice, cecum Colonoscopy with hot snare polypectomy Colonoscopy with cold forceps biopsy SURGEON: Umm Ralph MD. ANESTHESIA: MAC. INDICATIONS: The patient is an 66-year-old female who presents personal history of colon polyps. Last colonoscopy 5 years. Benefits and risks were described and informed consent was obtained. DESCRIPTION OF PROCEDURE: The patient had undergone Sutab prep. The patient had been brought into the operating room and laid in the left lateral decubitus position. After adequate intravenous sedation, the rectum was examined with 2% lidocaine jelly. No external hemorrhoids were encountered. The rectal tone was within normal limits. No lesions were palpated in the rectal vault. An Olympus colonoscope was advanced until the cecum, ileocecal valve and appendiceal orifice were clearly viewed. The prep was excellent. Sigmoid diverticulosis was encountered. Colonic polyps were found and removed. No evidence of focal colitis was found. Retroflexion of the scope demonstrated grade 1 internal hemorrhoids without active bleeding or inflammation. The colon was desufflated. The patient had tolerated the procedure well. Withdrawal time was over 6 minutes. FINDINGS: Aronchick preparation quality scale 1 (1-5) Internal hemorrhoids, grade 1 No external hemorrhoids No arteriovenous malformations. Pandiverticulosis Removal of 2 polyps: - Snare polypectomy transverse colon, 5 mm tubulovillous adenoma polyp. - Cold forceps biopsy at cecum, 4 mm polyp. No focal colitis. RECOMMENDATIONS: Repeat colonoscopy in 3 years 2024
--- NOTE | 2022-01-17 09:56 | P.PCN ---
Date of Procedure: 01/17/22 Description of Procedure: PREOPERATIVE DIAGNOSIS: Gastroesophageal reflux disease. History of paraesophageal hiatal hernia repair POSTOPERATIVE DIAGNOSIS: Gastroesophageal reflux disease with erosive esophagitis Morbid obesity. Gastritis. Diaphragmatic hiatal hernia, recurrent OPERATION: Esophagogastroduodenoscopy with biopsies along antrum, duodenum, esophagus SURGEON: Umm Ralph MD ANESTHESIA: MAC. INDICATIONS: The patient is a 66-year-old female who presents with reflux disease. Benefits and risks of the procedure were described. Informed consent was obtained. DESCRIPTION: The patient was brought into the endoscopy suite and laid in the left lateral decubitus position. An Olympus gastroscope was passed along the posterior oropharynx down to the distal esophagus where the squamocolumnar junction was encountered at 34 cm from the incisors. The stomach was entered and no bile refl ux was found. Additional findings are listed below. Biopsies with cold forceps were obtained of the antrum. The first through third portion of the duodenum was examined. Retroflexion of the scope confirmed Hill grade 3 lower esophageal valve. The squamocolumnar junction demonstrated LA grade B erosive esophagitis. The stomach was desufflated. The patient tolerated the procedure well. FINDINGS: Squamocolumnar junction 30 cm from the incisors. Diaphragmatic hiatus at 34 cm. Hiatal hernia, 4 cm Hill grade 4 lower esophageal valve. LA grade C erosive esophagitis. Active duodenitis. Chronic gastritis RECOMMENDATIONS: Start omeprazole 40 mg daily for 2 weeks May need repair of recurrent hiatal hernia Plan - Discharge Summary Discharge Rx Participant: Yes New Discharge Prescriptions: New Omeprazole [PriLOSEC] 40 mg PO DAILY #14 cap Continue amLODIPine [Norvasc] 5 mg PO DAILY Olmesartan [Benicar] 40 mg PO DAILY Discharge Medication List Olmesartan [Benicar] 40 mg PO DAILY 01/15/22 [History] amLODIPine [Norvasc] 5 mg PO DAILY 01/15/22 [History] Omeprazole [PriLOSEC] 40 mg PO DAILY #14 cap 01/17/22 [Rx] Follow up Appointment(s)/Referral(s): Umm Ralph MD [STAFF PHYSICIAN] - 02/06/22 Patient Instructions/Handouts: Diverticulitis (GEN), Colorectal Polyps (GEN), Diverticulosis Diet (GEN) Activity/Diet/Wound Care/Special Instructions: Repeat colonoscopy in 3 years, 2024 Discharge Disposition: HOME SELF-CARE
== END 2022-01-17 10:24 | disposition home or self-care (01) ==
LOC: ORWHC2ENDO 07:41
PROVIDERS: ATTEND Surgery Plastic and Reconstructive Surgery
DX: D12.3 Benign neoplasm of transverse colon (principal); K64.0 First degree hemorrhoids; K29.50 Unspecified chronic gastritis without bleeding; K21.00 Gastro-esophageal reflux disease with esophagitis, without bleeding; I10 Essential (primary) hypertension; K44.9 Diaphragmatic hernia without obstruction or gangrene; I26.99 Other pulmonary embolism without acute cor pulmonale; E66.01 Morbid (severe) obesity due to excess calories; Z87.19 Personal history of other diseases of the digestive system; Z86.010 Personal history of colon polyps; Z85.828 Personal history of other malignant neoplasm of skin; Z80.0 Family history of malignant neoplasm of digestive organs
CPT/HCPCS: 45385; 43239; J2704; J2001; 88305